=== PATIENT | female | born 1945 | race Caucasian/White ===

== ENCOUNTER 2019-07-27 23:12 | Inpatient (IN) | payer MEDICARE ==
--- NOTE | 2019-07-27 23:17 | ED ---
General Adult HPI - General Stated complaint: fall Time Seen by Provider: 07/27/19 23:15 - History of Present Illness Initial comments: Heather is a 73-year-old female presents the ER today via EMS for evaluation after a fall at home. Patient reports that she had a fall on , she was weak and unable to get up off the floor. Patient reports she spent night and TUESDAY on the floor. Tuesday she was able to reach a phone call 911, EMS arrived and the patient somewhat altered, very care glucose is 44 she was given apple juice with sugar and oral dextrose. Patient then became awake alert and oriented. Patient reports she was just feeling weak, she rolled out of bed and when she attempted to get up she can tell the floor she didn't hit her head she didn't lose consciousness. Patient states that she was too weak to get back up and her family is currently out of town spelled he came by to check on her. Patient reports she feels like she is doing pretty good for some beers with the day on the floor, she denies any specific pain. - Related Data Home Medications Medication Instructions Recorded Confirmed Aspirin 81 mg PO DAILY 03/06/14 03/06/14 Enalapril/Hydrochlorothiazide 1 each PO DAILY 03/06/14 03/06/14 [Enalapril-Hctz 10-25 mg Tablet] Hydrocodone/Acetaminophen 1 each PO Q6HR PRN 03/06/14 03/06/14 [Hydrocodon-Acetaminophen 5-325] Insulin NPH/Reg Insulin 70/30 100 unit SQ DAILY 03/06/14 03/06/14 [humuLIN 70/30 VIAL] Lansoprazole [Prevacid] 30 mg PO DAILY 03/06/14 03/06/14 Lovastatin [Mevacor] 40 mg PO HS 03/06/14 03/06/14 Meloxicam [Mobic] 7.5 mg PO DAILY 03/06/14 03/06/14 Tolterodine Tartrate [Detrol LA] 4 mg PO DAILY 03/06/14 03/06/14 metFORMIN HCL 500 mg PO DAILY 03/06/14 03/06/14 Previous Rx's Medication Instructions Recorded Meclizine [Antivert] 25 mg PO TID #30 tab 03/07/14 Allergies Allergy/AdvReac Type Severity Reaction Status Date / Time No Known Allergies Allergy Verified 07/27/19 23:29 Review of Systems ROS Statement: Those systems with pertinent positive or pertinent negative responses have been documented in the HPI. ROS Other: All systems not noted in ROS Statement are negative. Past Medical History Past Medical History: Diabetes Mellitus History of Any Multi-Drug Resistant Organisms: None Reported Past Surgical History: Hysterectomy, Orthopedic Surgery Additional Past Surgical History / Comment(s): cataract Past Psychological History: Depression Smoking Status: Former smoker Past Alcohol Use History: None Reported Past Drug Use History: None Reported General Exam - General Exam Comments Initial Comments: Physical Exam GENERAL: Morbidly obese female in no acute distress HENT: Normocephalic, Atraumatic. EYES: PERRL, EOMI PULMONARY: Unlabored respirations. No audible rales rhonchi or wheezing was noted. CARDIOVASCULAR: There is a regular rate and rhythm without any murmurs gallops or rubs. ABDOMEN: Soft and nontender with normal bowel sounds. SKIN: There are pressure ulcers on the bilateral calves, abrasions to bilateral lateral malleoli, abrasions over the ventral surface of the right toes There is skin breakdown in the intertriginous folds in the left groin : Normal external genitalia, mild skin breakdown secondary to urinary incontinence NEUROLOGIC: Patient is alert and oriented x3. Moving all extremities spontaneously MUSCULOSKELETAL: Normal extremities with adequate strength and full range of motion. No lower extremity swelling or edema. No calf tenderness. PSYCHIATRIC: Normal psychiatric evaluation. Course Vital Signs 07/27/19 07/27/19 07/27/19 23:22 23:32 23:33 Temperature 99.3 F Pulse Rate 101 H Respiratory 15 17 Rate Blood Pressure 151/66 O2 Sat by Pulse 94 L 97 Oximetry 07/28/19 00:27 Temperature Pulse Rate 93 Respiratory 20 Rate Blood Pressure 141/77 O2 Sat by Pulse 98 Oximetry EKG Findings - EKG Comments: EKG Findings:: EKG was obtained due to complaint of fall and generalized weakness, EKG was obtained at 2337, rate is 102 rhythm is sinus tachycardia, AK is prolonged at 224, QRS is 64 QTc is [address] elevations or depressions no evidence of acute ischemia or infarction. Medical Decision Making - Medical Decision Making The patient was seen and evaluated, history is obtained from the patient and EMS This pleasant 73-year-old female who has been on the floor for over 24 hours, she is no obvious visible injuries aside from superficial skin abrasions. Does appear to have some pressure ulcers developing on her calves. There is concerned she could've developed rhabdo the duration of being on the floor. Labs were obtained and are consistent with rhabdo with acute kidney injury and hypomagnesemia Magnesium was repleted, IV fluids are infusing Patient care was discussed with her primary care physician Dr. Pichardo who agrees with plan for admission for IV fluid resuscitation. - Lab Data Result diagrams: 07/27/19 23:25 07/27/19 23:35 Lab Results 07/27/19 07/27/19 07/27/19 Range/Units 23:22 23:25 23:25 WBC 13.0 H (3.8-10.6) k/uL RBC 4.07 (3.80-5.40) m/uL Hgb 13.1 (11.4-16.0) gm/dL Hct 39.1 (34.0-46.0) % MCV 96.0 (80.0-100.0) fL MCH 32.1 (25.0-35.0) pg MCHC 33.5 (31.0-37.0) g/dL RDW 12.7 (11.5-15.5) % Plt Count 171 (150-450) k/uL Neutrophils % 81 % Lymphocytes % 11 % Monocytes % 6 % Eosinophils % 1 % Basophils % 0 % Neutrophils # 10.6 H (1.3-7.7) k/uL Lymphocytes # 1.4 (1.0-4.8) k/uL Monocytes # 0.8 (0-1.0) k/uL Eosinophils # 0.1 (0-0.7) k/uL Basophils # 0.1 (0-0.2) k/uL PT (9.0-12.0) sec INR (<1.2) APTT (22.0-30.0) sec Sodium (137-145) mmol/L Potassium (3.5-5.1) mmol/L Chloride (98-107) mmol/L Carbon Dioxide (22-30) mmol/L Anion Gap mmol/L BUN (7-17) mg/dL Creatinine (0.52-1.04) mg/dL Est GFR (CKD-EPI)AfAm (>60 ml/min/1.73 sqM) Est GFR (CKD-EPI)NonAf (>60 ml/min/1.73 sqM) Glucose (74-99) mg/dL POC Glucose (mg/dL) 80 (75-99) mg/dL POC Glu Switching Operator ID Mary Francois Plasma Lactic Acid [place] 2.6 H* (0.7-2.0) mmol/L Calcium (8.4-10.2) mg/dL Magnesium (1.6-2.3) mg/dL Total Bilirubin (0.2-1.3) mg/dL AST (14-36) U/L ALT (4-34) U/L Alkaline Phosphatase (38-126) U/L Creatine Kinase (30-135) U/L Total Protein (6.3-8.2) g/dL Albumin (3.5-5.0) g/dL Urine Color Urine Appearance (Clear) Urine pH (5.0-8.0) Ur Specific [place] (1.001-1.035) Urine Protein (Negative) Urine Glucose (UA) (Negative) Urine Ketones (Negative) Urine Blood (Negative) Urine Nitrite (Negative) Urine Bilirubin (Negative) Urine Urobilinogen (<2.0) mg/dL Ur Leukocyte Esterase (Negative) Urine RBC (0-5) /hpf Urine WBC (0-5) /hpf Ur Squamous Epith Cells (0-4) /hpf Hyaline Casts (0-2) /lpf Urine Mucus (None) /hpf 07/27/19 07/27/19 07/27/19 Range/Units 23:25 23:35 23:45 WBC (3.8-10.6) k/uL RBC (3.80-5.40) m/uL Hgb (11.4-16.0) gm/dL Hct (34.0-46.0) % MCV (80.0-100.0) fL MCH (25.0-35.0) pg MCHC (31.0-37.0) g/dL RDW (11.5-15.5) % Plt Count (150-450) k/uL Neutrophils % % Lymphocytes % % Monocytes % % Eosinophils % % Basophils % % Neutrophils # (1.3-7.7) k/uL Lymphocytes # (1.0-4.8) k/uL Monocytes # (0-1.0) k/uL Eosinophils # (0-0.7) k/uL Basophils # (0-0.2) k/uL PT 11.1 (9.0-12.0) sec INR 1.1 (<1.2) APTT 21.6 L (22.0-30.0) sec Sodium 137 (137-145) mmol/L Potassium 4.1 (3.5-5.1) mmol/L Chloride 102 (98-107) mmol/L Carbon Dioxide 26 (22-30) mmol/L Anion Gap 9 mmol/L BUN 47 H (7-17) mg/dL Creatinine 1.43 H (0.52-1.04) mg/dL Est GFR (CKD-EPI)AfAm 42 (>60 ml/min/1.73 sqM) Est GFR (CKD-EPI)NonAf 36 (>60 ml/min/1.73 sqM) Glucose 81 (74-99) mg/dL POC Glucose (mg/dL) (75-99) mg/dL POC Glu Switching Operator ID Plasma Lactic Acid [place] (0.7-2.0) mmol/L Calcium 9.3 (8.4-10.2) mg/dL Magnesium 1.5 L (1.6-2.3) mg/dL Total Bilirubin 1.3 (0.2-1.3) mg/dL AST 171 H (14-36) U/L ALT 45 H (4-34) U/L Alkaline Phosphatase 49 (38-126) U/L Creatine Kinase 3010 H* (30-135) U/L Total Protein 6.6 (6.3-8.2) g/dL Albumin 3.8 (3.5-5.0) g/dL Urine Color Yellow Urine Appearance Clear (Clear) Urine pH 5.5 (5.0-8.0) Ur Specific [place] 1.025 (1.001-1.035) Urine Protein 1+ H (Negative) Urine Glucose (UA) Negative (Negative) Urine Ketones 1+ H (Negative) Urine Blood Negative (Negative) Urine Nitrite Negative (Negative) Urine Bilirubin Negative (Negative) Urine Urobilinogen 4.0 (<2.0) mg/dL Ur Leukocyte Esterase Negative (Negative) Urine RBC <1 (0-5) /hpf Urine WBC <1 (0-5) /hpf Ur Squamous Epith Cells 2 (0-4) /hpf Hyaline Casts 10 H (0-2) /lpf Urine Mucus Rare H (None) /hpf Disposition Clinical Impression: Rhabdomyolysis, Fall at home, Decubitus ulcer of ankle, Morbid obesity, Debility, BELLA (acute kidney injury) Disposition: ADMITTED IP TO THIS HOSP Condition: Serious Is patient prescribed a controlled substance at d/c from ED?: No
[2019-07-27 23:25] LABS: Glucose,Whole Blood 80 mg/dL (75-99)
[2019-07-27] MEDS: SODIUM CHLORIDE 0.9% 500 ML 500 ML IV SCH (23:53)
[2019-07-28 00:02] LABS: Basophils # (A) 0.1 k/uL (0-0.2); Basophils % (A) 0 %; Eosinophils # (A) 0.1 k/uL (0-0.7); Eosinophils % (A) 1 %; HCT 39.1 % (34.0-46.0); HGB 13.1 gm/dL (11.4-16.0); Lymphocytes # (A) 1.4 k/uL (1.0-4.8); Lymphocytes % (A) 11 %; MCH 32.1 pg (25.0-35.0); MCHC 33.5 g/dL (31.0-37.0); Mean Platelet Volume 9.6; Monocytes # (A) 0.8 k/uL (0-1.0); Monocytes % (A) 6 %; Neutrophils # (A) 10.6 k/uL (1.3-7.7); Neutrophils % (A) 81 %; Platelet Count 171 k/uL (150-450); RBC 4.07 m/uL (3.80-5.40); RDW 12.7 % (11.5-15.5)
[2019-07-28 00:13] LABS: Albumin 3.8 g/dL (3.5-5.0); Calcium 9.3 mg/dL (8.4-10.2); Magnesium 1.5 mg/dL (1.6-2.3); Potassium 4.1 mmol/L (3.5-5.1); Total Bilirubin 1.3 mg/dL (0.2-1.3); Total Protein 6.6 g/dL (6.3-8.2)
[2019-07-28 00:17] LABS: INR 1.1 (<1.2); Prothrombin Time 11.1 sec (9.0-12.0)
[2019-07-28 00:18] LABS: Partial Thromboplastin Time 21.6 sec (22.0-30.0)
[2019-07-28] MEDS ORDERED: MAGNESIUM SULFATE-D5W PMX 1 GM in DEXTROSE/WATER 1 100ML.BAG IVPB ONE (00:23)
[2019-07-28] MEDS: SODIUM CHLORIDE 0.9% 500 ML 500 ML IV SCH (00:25)
[2019-07-28] MEDS ORDERED: NALOXONE 0.4 MG/ML 1 ML VIAL IV PRN (00:26)
[2019-07-28] MEDS: SODIUM CHLORIDE 0.9% 1,000 ML IV SCH ×4 (00:32→21:15)
[2019-07-28 01:12] LABS: Appearance,Urine Clear (Clear); Bilirubin,Urine Negative (Negative); Blood,Urine Negative (Negative); Color,Urine Yellow; Glucose,Urine (UA) Negative (Negative); Hyaline Casts,Urine 10 /lpf (0-2); Ketones,Urine 1+ (Negative); Leukocyte Esterase,Urine Negative (Negative); Mucus,Urine Rare /hpf; Nitrite,Urine Negative (Negative); PH, Urine 5.5 (5.0-8.0); Protein,Urine 1+ (Negative); RBC,Urine <1 /hpf (0-5); Specific Gravity,Urine 1.025 (1.001-1.035); Squamous Epithelial Cell,Urine 2 /hpf (0-4); WBC,Urine <1 /hpf (0-5)
[2019-07-28] MEDS: HYDROcodone/APAP 5-325MG 1 EACH TAB PO PRN ×2 (01:22→17:56)
[2019-07-28 07:03] LABS: Glucose,Whole Blood 102 mg/dL (75-99)
[2019-07-28] MEDS: INSULIN ASPART (NovoLOG) 100 UNIT/ML VIAL SQ SCH ×4 (07:39→20:09)
[2019-07-28] MEDS: LISINOPRIL 20 MG TAB PO SCH (08:59)
[2019-07-28] MEDS: HYDROCHLOROTHIAZIDE 25 MG TAB PO SCH (08:59)
[2019-07-28] MEDS: PANTOPRAZOLE 40 MG TABLET PO SCH (08:59)
[2019-07-28] MEDS: ASPIRIN 81 MG PO SCH (08:59)
[2019-07-28 11:29] LABS: Glucose,Whole Blood 244 mg/dL (75-99)
[2019-07-28] MEDS: CITALOPRAM HYDROBROMIDE 20 MG TAB PO SCH (13:40)
[2019-07-28 16:45] LABS: Glucose,Whole Blood 256 mg/dL (75-99)
[2019-07-28 20:04] LABS: Glucose,Whole Blood 211 mg/dL (75-99)
--- NOTE | 2019-07-28 21:58 | HP ---
HISTORY AND PHYSICAL CHIEF COMPLAINT: 73-year-old white female, who fell out of her bed, laid on the bed at home for 2 days, was admitted for rhabdomyolysis. States she has been having a little bit of tremor in her left hand and 1 of her fingers wants that reviewed. She apparently got to the phone and called 911. She did not lose consciousness. She just woke up on the floor and was on the floor for 2 days. HOME MEDICATIONS: Include aspirin 81 mg daily, [place] 5/35 q.6 p.r.n., enalapril hydrochlorothiazide 10/25 daily, 70/30 insulin 100 units daily, Prevacid 30 mg daily, Mevacor 40 daily, Mobic 7.5 daily, Detrol LA 4 daily, metformin 500 daily. ALLERGIES: Negative. REVIEW OF SYSTEMS: Fourteen-point review of systems negative except for mentioned in the HPI, except for some mild abrasions in the lower legs and myalgias. PAST MEDICAL HISTORY: Hypertension, diabetes mellitus, some depression, former smoker. SURGERIES: Hysterectomy, orthopedic surgery. PHYSICAL EXAM: Vital signs stable, afebrile. Endocrine BMI is over 40. PSYCH: Fair mood and affect. HEENT: Pupils equal, round, reactive. HEAD: Normocephalic, atraumatic. CARDIOVASCULAR: S1, S2. ABDOMEN: Soft, normal bowel sounds. SKIN is some pressure ulcers on bilateral calves. Some abrasions and bruising to the anterior tibials, knees. : No suprapubic tenderness. NEUROLOGIC: Cranial nerves are intact. VITAL SIGNS: Temp 99.3, pulse 90-100, respiratory 15-20, blood pressure 150s over 60s, 94 to 97% on room air. EKG sinus rhythm, sinus tachycardia. ASSESSMENT: 1. Dehydration. 2. Rhabdomyolysis. 3. Frequent falls. 4. Bruising and abrasions to extremities. 5. CPKs over 3000. Continue with IV fluids. Monitor for kidney injury. Continue home medicines except hold medicines that can affect rhabdomyolysis including statins. Follow up next 24 to 48 hours. MMODL / IJN: [id number] /
[2019-07-29] MEDS: SODIUM CHLORIDE 0.9% 1,000 ML IV SCH ×3 (01:33→17:51)
[2019-07-29] MEDS: LEVOTHYROXINE 50 MCG TAB PO SCH (06:07)
[2019-07-29 07:15] LABS: Glucose,Whole Blood 177 mg/dL (75-99)
[2019-07-29 08:06] LABS: Basophils # (A) 0.1 k/uL (0-0.2); Basophils % (A) 1 %; Eosinophils # (A) 0.2 k/uL (0-0.7); Eosinophils % (A) 3 %; HCT 35.3 % (34.0-46.0); HGB 11.8 gm/dL (11.4-16.0); Lymphocytes # (A) 1.5 k/uL (1.0-4.8); Lymphocytes % (A) 27 %; MCH 32.7 pg (25.0-35.0); MCHC 33.3 g/dL (31.0-37.0); Mean Platelet Volume 9.3; Monocytes # (A) 0.3 k/uL (0-1.0); Monocytes % (A) 6 %; Neutrophils # (A) 3.6 k/uL (1.3-7.7); Neutrophils % (A) 62 %; Platelet Count 112 k/uL (150-450); RBC 3.61 m/uL (3.80-5.40); RDW 12.7 % (11.5-15.5); WBC 5.8 k/uL (3.8-10.6)
[2019-07-29 08:23] LABS: Albumin 3.1 g/dL (3.5-5.0); Calcium 8.7 mg/dL (8.4-10.2); Potassium 4.1 mmol/L (3.5-5.1); Total Protein 5.8 g/dL (6.3-8.2)
[2019-07-29] MEDS ORDERED: NON FORMULARY DRUG (Cranberry Fruit Extract [Cranberry] 500 MG) PO SCH (09:00)
[2019-07-29] MEDS: CITALOPRAM HYDROBROMIDE 20 MG TAB PO SCH (09:39)
[2019-07-29] MEDS: HYDROCHLOROTHIAZIDE 25 MG TAB PO SCH (09:39)
[2019-07-29] MEDS: CYANOCOBALAMIN 500 MCG TAB PO SCH (09:39)
[2019-07-29] MEDS: INSULIN ASPART (NovoLOG) 100 UNIT/ML VIAL SQ SCH ×4 (09:39→20:41)
[2019-07-29] MEDS: LISINOPRIL 20 MG TAB PO SCH (09:39)
[2019-07-29] MEDS: PANTOPRAZOLE 40 MG TABLET PO SCH (09:39)
[2019-07-29] MEDS: ASPIRIN 81 MG PO SCH (09:39)
[2019-07-29 11:39] LABS: Glucose,Whole Blood 206 mg/dL (75-99)
[2019-07-29 17:09] LABS: Glucose,Whole Blood 278 mg/dL (75-99)
--- NOTE | 2019-07-29 19:30 | PN ---
PROGRESS NOTE SUBJECTIVE: 73-year-old white female not having chest pain or shortness of breath, chronic myalgias in the legs bilaterally with some abrasions. We will continue PT/OT and ambulation. Possible rehab placement versus discharge home tomorrow depending on how patient ambulates. CPK is down to 707 down from 3500. Continue current treatment. PT/OT consult. Possible discharge home in next day or 2 or to rehab center. MMODL / IJN: [id number] /
[2019-07-29 19:50] LABS: Glucose,Whole Blood 311 mg/dL (75-99)
[2019-07-30] MEDS: LEVOTHYROXINE 50 MCG TAB PO SCH (05:48)
[2019-07-30 07:15] LABS: Glucose,Whole Blood 192 mg/dL (75-99)
[2019-07-30] MEDS: CYANOCOBALAMIN 500 MCG TAB PO SCH (07:19)
[2019-07-30] MEDS: ASPIRIN 81 MG PO SCH (07:19)
[2019-07-30] MEDS: CITALOPRAM HYDROBROMIDE 20 MG TAB PO SCH (07:19)
[2019-07-30] MEDS: HYDROCHLOROTHIAZIDE 25 MG TAB PO SCH (07:19)
[2019-07-30] MEDS: INSULIN ASPART (NovoLOG) 100 UNIT/ML VIAL SQ SCH ×4 (07:20→20:52)
[2019-07-30] MEDS: LISINOPRIL 20 MG TAB PO SCH (07:20)
[2019-07-30] MEDS: SODIUM CHLORIDE 0.9% 1,000 ML IV SCH ×4 (07:20→19:47)
[2019-07-30] MEDS: PANTOPRAZOLE 40 MG TABLET PO SCH (07:21)
[2019-07-30 08:15] LABS: Basophils % (A) 0 %; Eosinophils # (A) 0.2 k/uL (0-0.7); Eosinophils % (A) 5 %; HCT 39.8 % (34.0-46.0); HGB 13.1 gm/dL (11.4-16.0); Lymphocytes # (A) 1.3 k/uL (1.0-4.8); Lymphocytes % (A) 27 %; MCH 32.2 pg (25.0-35.0); MCHC 32.9 g/dL (31.0-37.0); Mean Platelet Volume 9.6; Monocytes # (A) 0.3 k/uL (0-1.0); Monocytes % (A) 6 %; Neutrophils # (A) 2.8 k/uL (1.3-7.7); Neutrophils % (A) 59 %; Platelet Count 122 k/uL (150-450); RBC 4.06 m/uL (3.80-5.40); RDW 12.6 % (11.5-15.5); WBC 4.7 k/uL (3.8-10.6)
[2019-07-30 08:17] LABS: Albumin 3.4 g/dL (3.5-5.0); Calcium 8.6 mg/dL (8.4-10.2); Potassium 4.4 mmol/L (3.5-5.1); Total Bilirubin 0.8 mg/dL (0.2-1.3); Total Protein 6.1 g/dL (6.3-8.2)
[2019-07-30 11:06] LABS: Glucose,Whole Blood 216 mg/dL (75-99)
--- NOTE | 2019-07-30 12:06 | P.DS ---
Providers Date of admission: 07/28/19 00:30 Expected date of discharge: 07/30/19 Attending physician: Wagner Pichardo [facility] Course: Final Diagnoses Dehydration Rhabdomyolysis Recent falls 2 Hospital course: This is a 73-year-old female who sustained 2 falls within 2 days, admitted with rhabdomyolysis and multiple other medical issues. Maintained on IV fluid hydration. Statin and metformin remain on hold. Significant clinical improvement. Patient is pending discharge to subacute rehab today in a stable condition with fair prognosis. EXAM: GEN: Alert and oriented 3, no acute distress CV: Regular S1 and S2 LUNGS: Clear to auscultation, bilateral bases diminished ABD: Soft, nondistended, nontender, positive bowel sounds NEURO: Cranial nerves II through XII grossly intact SKIN: Multiple abrasions/bruising on extremities. The impression and plan of care has been dictated as directed. : I performed a history and examination of this patient, discussed the same with the dictator. I agree with the dictator's note ,documented as a scribe. Any additional findings or plans will be noted. Patient Condition at Discharge: Stable Plan - Discharge Summary New Discharge Prescriptions: New INSULIN LISPRO (HumaLOG) [humaLOG] 0 unit SQ ACHS #1 vial Continue Aspirin 81 mg PO DAILY Meloxicam [Mobic] 7.5 mg PO BID Lansoprazole [Prevacid] 30 mg PO DAILY Tolterodine Tartrate [Detrol LA] 4 mg PO DAILY Insulin NPH/Reg Insulin 70/30 [humuLIN 70/30 VIAL] 110 unit SQ DAILY Enalapril/Hydrochlorothiazide [Vaseretic 10-25 mg] 1 tab PO DAILY Levothyroxine Sodium [Synthroid] 50 mcg PO DAILY Cyanocobalamin [Vitamin B-12] 500 mcg PO DAILY Cranberry Fruit Extract [Cranberry] 500 mg PO DAILY Citalopram Hydrobromide [CeleXA] 40 mg PO DAILY Discontinued metFORMIN HCL 500 mg PO DAILY Lovastatin [Mevacor] 40 mg PO DAILY Discharge Medication List Aspirin 81 mg PO DAILY 03/06/14 [History] Enalapril/Hydrochlorothiazide [Vaseretic 10-25 mg] 1 tab PO DAILY 03/06/14 [History] Insulin NPH/Reg Insulin 70/30 [humuLIN 70/30 VIAL] 110 unit SQ DAILY 03/06/14 [History] Lansoprazole [Prevacid] 30 mg PO DAILY 03/06/14 [History] Meloxicam [Mobic] 7.5 mg PO BID 03/06/14 [History] Tolterodine Tartrate [Detrol LA] 4 mg PO DAILY 03/06/14 [History] Citalopram Hydrobromide [CeleXA] 40 mg PO DAILY 07/28/19 [History] Cranberry Fruit Extract [Cranberry] 500 mg PO DAILY 07/28/19 [History] Cyanocobalamin [Vitamin B-12] 500 mcg PO DAILY 07/28/19 [History] Levothyroxine Sodium [Synthroid] 50 mcg PO DAILY 07/28/19 [History] INSULIN LISPRO (HumaLOG) [humaLOG] 0 unit SQ ACHS #1 vial 07/30/19 [Rx] Follow up Appointment(s)/Referral(s): Wagner Pichardo MD [Primary Care Provider] - 1-2 days Patient Instructions/Handouts: Fall Prevention for Older Adults (DC) Activity/Diet/Wound Care/Special Instructions: ECF Metformin, statin currently on hold CBC, BMP in 3 days Diet: Consistent carb Activity: As tolerated Discharge Disposition: TRANSFER TO SNF/ECF
[2019-07-30 12:57] LABS: Hemoglobin A1C 5.6 % (4.0-6.0)
[2019-07-30 17:02] LABS: Glucose,Whole Blood 260 mg/dL (75-99)
[2019-07-30 20:50] LABS: Glucose,Whole Blood 292 mg/dL (75-99)
[2019-07-31] MEDS: SODIUM CHLORIDE 0.9% 1,000 ML IV SCH ×3 (03:06→17:40)
[2019-07-31] MEDS: LEVOTHYROXINE 50 MCG TAB PO SCH (05:48)
[2019-07-31 07:12] LABS: Glucose,Whole Blood 161 mg/dL (75-99)
[2019-07-31] MEDS: CITALOPRAM HYDROBROMIDE 20 MG TAB PO SCH (08:29)
[2019-07-31] MEDS: PANTOPRAZOLE 40 MG TABLET PO SCH (08:30)
[2019-07-31] MEDS: LISINOPRIL 20 MG TAB PO SCH (08:30)
[2019-07-31] MEDS: ASPIRIN 81 MG PO SCH (08:30)
[2019-07-31] MEDS: CYANOCOBALAMIN 500 MCG TAB PO SCH (08:31)
[2019-07-31] MEDS: HYDROCHLOROTHIAZIDE 25 MG TAB PO SCH (08:31)
[2019-07-31] MEDS: INSULIN ASPART (NovoLOG) 100 UNIT/ML VIAL SQ SCH ×3 (08:31→17:39)
[2019-07-31 11:25] LABS: Glucose,Whole Blood 376 mg/dL (75-99)
[2019-07-31 12:32] VITALS: BP 113/61; PULSE 98; RESP 18; TEMP 97.1
[2019-07-31 16:53] LABS: Glucose,Whole Blood 314 mg/dL (75-99)
--- NOTE | 2019-08-01 11:42 | CDI ---
Documentation Clarification Form Date: 08/01/19 From: Radha Menendez Phone: If you have a question about this query, please contact Gladis Leavitt, Casino Cashier Manager at [phone] between 8am and 5pm. Admit Date: 07/28/19 Discharge Date: 07/31/19 Patient Name: Heather Taylor Visit Number: [id number] ATTENTION: The Clinical Documentation Specialists (CDI) and [facility] Coding Staff appreciate your assistance in clarifying documentation. Please respond to the clarification below the line at the bottom and electronically sign. The CDI & [facility] Coding staff will review the response and follow-up if needed. Please note: Queries are made part of the Legal Health Record. If you have any questions, please contact the author of this message via ITS. Dear Dr. Wagner Pichardo, Please render your impression if rhabdomyolysis is traumatic or non-traumatic. History/Risk Factors: DM, morbid obesity w BMI 43.0, HTN, pressure ulcer of calves Clinical Indicators: Patient fell from bed and laid on the floor for two days. Dehydrated, fx nose Treatment: IV fluids In your professional opinion, can you please clarify the etiology of the condition? Traumatic rhabdomyolysis due to fall Traumatic rhabdomyolysis due to prolonged immobility Non traumatic rhabdomyolysis due to medication (please specify) Non traumatic rhabdomyolysis due to infection (please specify) Other, please specify Unable to determine MTDD
--- NOTE | 2019-08-03 12:57 | CDI ---
Documentation Clarification Form Date: 08/01/19 From: Radha Menendez Phone: If you have a question about this query, please contact Gladis Leavitt, Kennel Aide at [phone] between 8am and 5pm. Admit Date: 07/28/19 Discharge Date: 07/31/19 Patient Name: Heather Taylor Visit Number: [id number] ATTENTION: The Clinical Documentation Specialists (CDI) and [facility] Coding Staff appreciate your assistance in clarifying documentation. Please respond to the clarification below the line at the bottom and electronically sign. The CDI & [facility] Coding staff will review the response and follow-up if needed. Please note: Queries are made part of the Legal Health Record. If you have any questions, please contact the author of this message via ITS. Dear Dr. Wagner Pichardo, Please render your impression if rhabdomyolysis is traumatic or non-traumatic. History/Risk Factors: DM, morbid obesity w BMI 43.0, HTN, pressure ulcer of calves Clinical Indicators: Patient fell from bed and laid on the floor for two days. Dehydrated, fx nose Treatment: IV fluids In your professional opinion, can you please clarify the etiology of the condition? Traumatic rhabdomyolysis due to fall Traumatic rhabdomyolysis due to prolonged immobility Non traumatic rhabdomyolysis due to medication (please specify) Non traumatic rhabdomyolysis due to infection (please specify) Other, please specify Unable to determine MTDD
--- NOTE | 2019-08-09 11:52 | CDI ---
Documentation Clarification Form Date: 08/01/19 From: Radha Menendez Phone: If you have a question about this query, please contact Gladis Leavitt, [employer] at [phone] between 8am and 5pm. Admit Date: 07/28/19 Discharge Date: 07/31/19 Patient Name: Heather Taylor Visit Number: [id number] ATTENTION: The Clinical Documentation Specialists (CDI) and [facility] Coding Staff appreciate your assistance in clarifying documentation. Please respond to the clarification below the line at the bottom and electronically sign. The CDI & [facility] Coding staff will review the response and follow-up if needed. Please note: Queries are made part of the Legal Health Record. If you have any questions, please contact the author of this message via ITS. Dear Dr. Wagner Pichardo, Please render your impression if rhabdomyolysis is traumatic or non-traumatic. History/Risk Factors: DM, morbid obesity w BMI 43.0, HTN, pressure ulcer of calves Clinical Indicators: Patient fell from bed and laid on the floor for two days. Dehydrated, fx nose Treatment: IV fluids In your professional opinion, can you please clarify the etiology of the condition? Traumatic rhabdomyolysis due to fall Traumatic rhabdomyolysis due to prolonged immobility Non traumatic rhabdomyolysis due to medication (please specify) Non traumatic rhabdomyolysis due to infection (please specify) Other, please specify Unable to determine MTDD
--- NOTE | 2019-08-13 08:46 | DS ---
DISCHARGE SUMMARY Please add to discharge summary: Traumatic rhabdomyolysis due to prolonged immobility. MMEVELYN / IJN: [id number] /
== END 2019-07-31 18:40 | disposition home health service (06) | DRG 565 ==
LOC: EC 23:12 → 5NMEDONC 07-28 00:30
PROVIDERS: ADMIT Family Medicine; ATTEND Family Medicine
DX: T79.6XXA Traumatic ischemia of muscle, initial encounter (principal); Z68.41 Body mass index [BMI] 40.0-44.9, adult; N17.9 Acute kidney failure, unspecified; L89.899 Pressure ulcer of other site, unspecified stage; E66.01 Morbid (severe) obesity due to excess calories; E86.0 Dehydration; E11.9 Type 2 diabetes mellitus without complications; I10 Essential (primary) hypertension; E83.42 Hypomagnesemia; R25.1 Tremor, unspecified; F32.9 Major depressive disorder, single episode, unspecified; L98.491 Non-pressure chronic ulcer of skin of other sites limited to breakdown of skin; S80.812A Abrasion, left lower leg, initial encounter; S80.811A Abrasion, right lower leg, initial encounter; R32 Unspecified urinary incontinence; R29.6 Repeated falls; Z79.82 Long term (current) use of aspirin; Z79.4 Long term (current) use of insulin; Z79.1 Long term (current) use of non-steroidal anti-inflammatories (NSAID); Z79.890 Hormone replacement therapy; Z79.899 Other long term (current) drug therapy; Z90.710 Acquired absence of both cervix and uterus; Z87.891 Personal history of nicotine dependence; Z98.49 Cataract extraction status, unspecified eye; W06.XXXA Fall from bed, initial encounter; Y92.003 Bedroom of unspecified non-institutional (private) residence as the place of occurrence of the external cause
CPT/HCPCS: 36415; 80053; 81001; 82550; 83036; 83605; 83735; 84484; 85025; 85610; 85730; 87040; 93005; 96365; 99285

== ENCOUNTER 2019-08-07 14:29 | Inpatient (IN) | payer MEDICARE ==
[2019-08-07 17:31] LABS: Glucose,Whole Blood 259 mg/dL (75-99)
[2019-08-07] MEDS ORDERED: ACETAMINOPHEN TAB 325 MG TAB PO PRN (18:29)
[2019-08-07] MEDS: SODIUM CHLORIDE 0.9% 1,000 ML IV SCH (20:32)
[2019-08-07] MEDS ORDERED: MELOXICAM 7.5 MG TAB PO SCH (21:00)
[2019-08-08] MEDS: LEVOTHYROXINE 50 MCG TAB PO SCH (06:04)
--- NOTE | 2019-08-08 07:11 | P.HPIM ---
History of Present Illness This is a pleasant 73 years old female with past medical history of diabetes mellitus, hyperlipidemia, hypertension, osteoarthritis, sleep apnea on CPAP/BiPAP. The patient is transferred from [facility] last was showing normal sodium and potassium 07/02/1933 and 4.3 respectively, creatinine normal at 1.0, liver enzymes elevated AST to 78, ALT 207, bilirubin is elevated at 4.9 and direct bilirubin is 3.8. The biopsies mildly elevated at 12.5, hemoglobin 13.3. Platelet 1 5040, INR 1.2, test is negative. Magnesium 1.5, looks like earlier in the admission [facility] liver enzymes were within normal reference range at AST 32 and ALT 29 with total bilirubin is 0.2. CPK is normal at 78. Troponin is negative less than 0.012. Urinalysis is not suspicious of infection. Hemoglobin A1c is 5.5%. Lactic acid 1.6. CT of the abdomen and pelvis with oral and IV contrast: Normal appearing liver and spleen, gallstones, no hydronephrosis. CT of the head: No acute intracranial process and chronic appearing periventricular white matter ischemic changes by radiologist. Ultrasound of the liver: Negative for leg 14.7 cm, with heterogeneous appearance no focal lesion. Gallstones. And sludge in the region of the gallbladder neck CBD 0.4 cm no findings of acute cholecystitis at that time and by radiologist for heterogenicity could be due to nonspecific hepatocellular disease. Doppler of the right lower extremity is negative for DVT. Blood pressure 118/48, she is saturating 95% and breathing rate 20 temperature 36.7 at [facility] By review records when she presented to [facility] her sugar was on the low side in the 40s which is corrected with therapy. She was somewhat confused because she could not remember the day or once she was eating. And she was released from [facility] a few days earlier after she fell at home. However her GCS total score was 15. Patient was found unresponsive by her neighbor so she was sent to the hospital. Later on her hemoglobin A1c was 5.5% and she was taken 100 units of insulin 70/30 which was stopped, however 2 days ago her liver enzymes and bilirubin start trending up so patient was transferred to the Hospital to Be Evaluated by Miter Grinder Operator This morning patient is fully awake and oriented to time place and person. She knows why she is in a hospital. She states she was living by herself and she was recently discharged from hospital from , and usually she takes 100 units of insulin 70/30 has been gradually increased over 30 years. Currently patient denies specific complaint of chest pain or dyspnea. No abdominal pain. No RUQ tenderness or pain. No nausea vomiting. No change in urine or bowel habits. Review of Systems CONSTITUTIONAL: No fever, no malaise, no fatigue. HEENT: No recent visual problems or hearing problems. Denied any sore throat. CARDIOVASCULAR: No orthopnea, PND, no palpitations, no syncope. PULMONARY: No shortness of breath, no cough, no hemoptysis. GASTROINTESTINAL: No diarrhea, no nausea, no vomiting, no abdominal pain. Normoactive bowel sounds. NEUROLOGICAL: No headaches, no weakness, no numbness. HEMATOLOGICAL: Denies any bleeding or petechiae. GENITOURINARY: Denies any burning micturition, frequency, or urgency. MUSCULOSKELETAL/RHEUMATOLOGICAL: Denies any joint pain, swelling, or any muscle pain. ENDOCRINE: Denies any polyuria or polydipsia. Past Medical History Past Medical History: Diabetes Mellitus, Hyperlipidemia, Hypertension, Osteoarthritis (OA), Sleep Apnea/CPAP/BIPAP History of Any Multi-Drug Resistant Organisms: None Reported Past Surgical History: Hysterectomy, Orthopedic Surgery Additional Past Surgical History / Comment(s): bilateral cataract, total right knee Smoking Status: Former smoker - Past Family History Mother Family Medical History: No Reported History Medications and Allergies Home Medications Medication Instructions Recorded Confirmed Type Aspirin 81 mg PO DAILY 03/06/14 08/07/19 History Enalapril/Hydrochlorothiazide 1 tab PO DAILY 03/06/14 08/07/19 History [Vaseretic 10-25 mg] Insulin NPH/Reg Insulin 70/30 110 unit SQ DAILY 03/06/14 08/07/19 History [humuLIN 70/30 VIAL] Lansoprazole [Prevacid] 30 mg PO DAILY 03/06/14 08/07/19 History Meloxicam [Mobic] 7.5 mg PO BID 03/06/14 08/07/19 History Tolterodine Tartrate [Detrol LA] 4 mg PO DAILY 03/06/14 08/07/19 History Citalopram Hydrobromide [CeleXA] 40 mg PO DAILY 07/28/19 08/07/19 History Cranberry Fruit Extract [Cranberry] 500 mg PO DAILY 07/28/19 08/07/19 History Cyanocobalamin [Vitamin B-12] 500 mcg PO DAILY 07/28/19 08/07/19 History Levothyroxine Sodium [Synthroid] 50 mcg PO DAILY 07/28/19 08/07/19 History Allergies Allergy/AdvReac Type Severity Reaction Status Date / Time No Known Allergies Allergy Verified 08/07/19 18:22 Physical Exam Vitals: Vital Signs Temp Pulse Pulse Resp BP Pulse Ox 08/08/19 05:00 98.5 F 77 16 96/56 92 L 08/07/19 20:58 99.5 F 96 16 99/65 93 L 08/07/19 17:30 98.1 F 76 17 151/55 96 Intake and Output 08/07/19 08/07/19 08/08/19 14:59 22:59 06:59 Intake Total 150 600 Balance 150 600 Intake: Intake, IV Titration 150 600 Amount Sodium Chloride 0.9% 1, 150 600 000 ml @ 75 mls/hr IV . [id number] [facility] Rx#:[id number] Other: Voiding Method Toilet Toilet Diaper Diaper Incontinent Incontinent # Voids 1 Weight 90.718 kg GENERAL: The patient is alert and oriented x3, not in any acute distress. Well developed, well nourished. HEENT: Pupils are round and equally reacting to light. EOMI. No scleral icterus. No conjunctival pallor. Normocephalic, atraumatic. No pharyngeal erythema. No thyromegaly. CARDIOVASCULAR: S1 and S2 present. No murmurs, rubs, or gallops. PULMONARY: Chest is clear to auscultation, no wheezing or crackles. ABDOMEN: Soft, nontender, nondistended, normoactive bowel sounds. No palpable organomegaly. MUSCULOSKELETAL: No joint swelling or deformity. EXTREMITIES: No cyanosis, clubbing, or pedal edema. NEUROLOGICAL: Gross neurological examination did not reveal any focal deficits. SKIN: No rashes. No petechiae Results Labs: Abnormal Lab Results - Last 24 Hours (Table) 08/07/19 Range/Units 17:28 POC Glucose (mg/dL) 259 H (75-99) mg/dL Thrombosis Risk Factor Assmnt - Choose All That Apply Any of the Below Risk Factors Present?: Yes Each Factor Represents 1 point: Medical pt on bed rest Other Risk Factors: Yes Each Risk Factor Represents 2 Points: Age 61-74 years Thrombosis Risk Factor Assessment Total Risk Factor Score: 3 Thrombosis Risk Factor Assessment Level: Moderate Risk Assessment and Plan Assessment: Trending up liver enzymes and bilirubin, transaminitis with possible bile duct obstruction Altered mental status, mostly metabolic encephalopathy due to her medical problems, including hypoglycemia and transaminitis. Completely resolved Generalized weakness Mildly elevated white cell count Diabetes mellitus with hyperglycemia on presentation. Hemoglobin A1c is 5.5%. Insulin was stopped. Electrolyte abnormality on the presentation with hypokalemia and hypomagnesemia, currently improving Hypertension Hyperlipidemia Osteoarthritis Sleep apnea on CPAP/BiPAP Plan: This is a pleasant 73 years old female who presents with hypoglycemia and tendon of the liver isn't improving. Continue monitoring her liver test and consult GI team for possible ERCP versus MRCP. Continue with insulin sliding scale. Physical therapy and social worker aide evaluation. Labs and medication were reviewed.. Continue same treatment. Continue with symptomatic treatment. Resume home medication. Monitor lytes and vitals. DVT and GI prophylaxis. Further recommendations of the clinical course of the patient DVT prophylaxis: Subcutaneous heparin GI Prophylaxis: Pepcid PT/OT: Pending Prognosis is guarded
[2019-08-08 08:13] LABS: Basophils % (A) 0 %; Eosinophils # (A) 0.1 k/uL (0-0.7); Eosinophils % (A) 1 %; HCT 32.9 % (34.0-46.0); HGB 10.8 gm/dL (11.4-16.0); Lymphocytes # (A) 0.6 k/uL (1.0-4.8); Lymphocytes % (A) 10 %; MCH 32.5 pg (25.0-35.0); MCHC 32.8 g/dL (31.0-37.0); MCV 99.1 fL (80.0-100.0); Mean Platelet Volume 9.8; Monocytes # (A) 0.3 k/uL (0-1.0); Monocytes % (A) 5 %; Neutrophils # (A) 5.2 k/uL (1.3-7.7); Neutrophils % (A) 83 %; Platelet Count 101 k/uL (150-450); RBC 3.32 m/uL (3.80-5.40); RDW 13.2 % (11.5-15.5); WBC 6.3 k/uL (3.8-10.6)
[2019-08-08 08:15] LABS: Glucose,Whole Blood 210 mg/dL (75-99)
[2019-08-08 08:28] LABS: Appearance,Urine Cloudy (Clear); Bacteria,Urine Occasional /hpf; Bilirubin,Urine 2+ (Negative); Blood,Urine Negative (Negative); Color,Urine Dark Brown; Glucose,Urine (UA) Negative (Negative); Ketones,Urine Negative (Negative); Leukocyte Esterase,Urine Negative (Negative); Mucus,Urine Rare /hpf; Nitrite,Urine Negative (Negative); Protein,Urine 1+ (Negative); RBC,Urine 4 /hpf (0-5); Squamous Epithelial Cell,Urine 5 /hpf (0-4); WBC,Urine 9 /hpf (0-5)
[2019-08-08 08:30] LABS: Albumin 2.5 g/dL (3.5-5.0); Bilirubin, Conjugated 3.1 mg/dL (0.0-0.3); Bilirubin, Delta 1.4 mg/dL (0.0-0.2); Calcium 7.9 mg/dL (8.4-10.2); Magnesium 1.5 mg/dL (1.6-2.3); Potassium 3.8 mmol/L (3.5-5.1); Total Bilirubin 5.5 mg/dL (0.2-1.3); Total Protein 5.1 g/dL (6.3-8.2)
[2019-08-08] MEDS ORDERED: FAMOTIDINE 20 MG/2 ML VIAL IV SCH (09:00)
[2019-08-08] MEDS: HEPARIN SODIUM,PORCINE 5,000 UNIT/ML 1 ML VIAL SQ SCH ×2 (09:04→20:11)
[2019-08-08] MEDS: PANTOPRAZOLE 40 MG TABLET PO SCH (09:04)
[2019-08-08] MEDS: OXYBUTYNIN XL 5 MG TAB.ER.24 PO SCH (09:04)
[2019-08-08] MEDS: ASPIRIN 81 MG PO SCH (09:04)
[2019-08-08] MEDS: CYANOCOBALAMIN 500 MCG TAB PO SCH (09:05)
[2019-08-08] MEDS: CITALOPRAM HYDROBROMIDE 20 MG TAB PO SCH (09:05)
[2019-08-08] MEDS: NON FORMULARY DRUG (Cranberry Fruit Extract [Cranberry] 500 MG) PO SCH (09:05)
[2019-08-08] MEDS: INSULIN ASPART (NovoLOG) 100 UNIT/ML VIAL SQ SCH ×3 (11:15→20:11)
[2019-08-08 11:18] LABS: Glucose,Whole Blood 299 mg/dL (75-99)
[2019-08-08] MEDS ORDERED: LORazepam 2 MG/ML INJ IV STA (15:40)
[2019-08-08 16:01] LABS: Alpha Fetoprotein, Tumor Mkr <2.5 ng/mL (0.0-7.9)
[2019-08-08 16:32] LABS: Glucose,Whole Blood 236 mg/dL (75-99)
[2019-08-08 17:00] LABS: Ferritin 270.5 ng/mL (10.0-291.0)
[2019-08-08] MEDS: SODIUM CHLORIDE 0.9% 1,000 ML IV SCH (17:26)
[2019-08-08 17:41] LABS: % Iron Saturation 7.83 (12.00-45.00)
[2019-08-08 18:20] LABS: Hemoglobin A1C 5.6 % (4.0-6.0)
[2019-08-08 18:35] LABS: Hepatitis A Antibody IgM Non-Reactive (Non-Reactive); Hepatitis B Core IgM Non-Reactive (Non-Reactive); Hepatitis B Surface Antigen Non-Reactive (Non-Reactive); Hepatitis C IgG Antibody Non-Reactive (Non-Reactive)
--- NOTE | 2019-08-08 19:06 | MR ---
EXAMINATION TYPE: MR liver wo/w con and mrcp DATE OF EXAM: 08/08/2019 COMPARISON: None HISTORY: Elevated LFTS, bili/Rule out CBD stone Multiplanar multiecho imaging of the abdomen and liver was performed without and with IV contrast. Th e contrast was gadolinium 9 mL. There are 3-D post processed images. FINDINGS: There is irregular signal within the gallbladder that probably relates to multiple gallstones in gall bladder polyps. The bile ducts are not dilated. Liver shows no discrete mass. Spleen is intact. Stoma ch is intact. The kidneys have normal size and contour. There is no hydronephrosis. There is no evide nce of a pancreatic mass. Pancreatic duct is not dilated. The contrast images show no pathologic enha ncement. There is patency of the portal venous system. The bile ducts are not dilated. Common bile du ct is small. There is probably some atelectasis right lung base. IMPRESSION: There is evidence for multiple gallstones in the dependent gallbladder. Mild infiltrate and atelectas is right posterior lung base. No focal liver defect. No dilated ducts. Normal pancreas. Normal MRCP.
[2019-08-08 20:05] LABS: Glucose,Whole Blood 394 mg/dL (75-99)
[2019-08-08] MEDS ORDERED: INSULIN DETEMIR (LEVEMIR) 100 UNIT/ML SYR SQ SCH (23:00)
[2019-08-08] MEDS ORDERED: Magnesium Replacement Protocol 1 EACH MISC MISCELLANE PRN ×2 (23:02→23:59)
[2019-08-09] MEDS: INSULIN DETEMIR (LEVEMIR) 100 UNIT/ML SYR SQ SCH ×2 (00:06→21:56)
[2019-08-09] MEDS: SODIUM CHLORIDE 0.9% 1,000 ML IV SCH ×2 (00:07→09:14)
[2019-08-09] MEDS: MAGNESIUM SULFATE-D5W PMX 1 GM in DEXTROSE/WATER 1 100ML.BAG IVPB SCH ×2 (00:24→01:32)
[2019-08-09 07:13] LABS: Glucose,Whole Blood 135 mg/dL (75-99)
[2019-08-09] MEDS: LEVOTHYROXINE 50 MCG TAB PO SCH (07:33)
[2019-08-09] MEDS: INSULIN ASPART (NovoLOG) 100 UNIT/ML VIAL SQ SCH ×4 (07:33→21:56)
[2019-08-09 07:45] LABS: Basophils % (A) 1 %; Eosinophils # (A) 0.1 k/uL (0-0.7); Eosinophils % (A) 4 %; HCT 32.7 % (34.0-46.0); HGB 10.4 gm/dL (11.4-16.0); Lymphocytes # (A) 0.7 k/uL (1.0-4.8); Lymphocytes % (A) 22 %; MCH 31.9 pg (25.0-35.0); MCHC 31.7 g/dL (31.0-37.0); MCV 100.5 fL (80.0-100.0); Macrocytosis Slight; Mean Platelet Volume 10.7; Monocytes # (A) 0.2 k/uL (0-1.0); Monocytes % (A) 5 %; Neutrophils # (A) 2.2 k/uL (1.3-7.7); Neutrophils % (A) 66 %; Platelet Count 119 k/uL (150-450); RBC 3.26 m/uL (3.80-5.40); RDW 13.3 % (11.5-15.5); WBC 3.3 k/uL (3.8-10.6)
--- NOTE | 2019-08-09 07:45 | P.PN ---
Subjective This is a pleasant 73 years old female with past medical history of diabetes mellitus, hyperlipidemia, hypertension, osteoarthritis, sleep apnea on CPAP/BiPAP. The patient is transferred from [facility] last was showing normal sodium and potassium 07/02/1933 and 4.3 respectively, creatinine normal at 1.0, liver enzymes elevated AST to 78, ALT 207, bilirubin is elevated at 4.9 and direct bilirubin is 3.8. The biopsies mildly elevated at 12.5, hemoglobin 13.3. Platelet 1 5040, INR 1.2, test is negative. Magnesium 1.5, looks like earlier in the admission [facility] liver enzymes were within normal reference range at AST 32 and ALT 29 with total bilirubin is 0.2. CPK is normal at 78. Troponin is negative less than 0.012. Urinalysis is not suspicious of infection. Hemoglobin A1c is 5.5%. Lactic acid 1.6. CT of the abdomen and pelvis with oral and IV contrast: Normal appearing liver and spleen, gallstones, no hydronephrosis. CT of the head: No acute intracranial process and chronic appearing periventricular white matter ischemic changes by radiologist. Ultrasound of the liver: Negative for leg 14.7 cm, with heterogeneous appearance no focal lesion. Gallstones. And sludge in the region of the gallbladder neck CBD 0.4 cm no findings of acute cholecystitis at that time and by radiologist for heterogenicity could be due to nonspecific hepatocellular disease. Doppler of the right lower extremity is negative for DVT. Blood pressure 118/48, she is saturating 95% and breathing rate 20 temperature 36.7 at [facility] By review records when she presented to [facility] her sugar was on the low side in the 40s which is corrected with therapy. She was somewhat confused because she could not remember the day or once she was eating. And she was released from [facility] a few days earlier after she fell at home. However her GCS total score was 15. Patient was found unresponsive by her neighbor so s he was sent to the hospital. Later on her hemoglobin A1c was 5.5% and she was taken 100 units of insulin 70/30 which was stopped, however 2 days ago her liver enzymes and bilirubin start trending up so patient was transferred to the Hospital to Be Evaluated by [employer] This morning patient is fully awake and oriented to time place and person. She knows why she is in a hospital. She states she was living by herself and she was recently discharged from hospital and usually she takes 100 units of insulin 70/30 has been gradually increased over 30 years. Currently patient denies spe cific complaint of chest pain or dyspnea. No abdominal pain. No RUQ tenderness or pain. No nausea vomiting. No change in urine or bowel habits. 08/09/2019 Patient is awake and alert. No abdominal pain. No nausea vomiting. No change in bowel habits as per patient. She was instilled per noted in the wall taper but that was she was waking up, we will keep monitoring. No other complaints. She follows up with Dr. Pichardo as an outpatient. Yesterday she had MRCP which was unremarkable except for gallstones, her hemoglobin A1c is 5.5-5.7%, sugar was more than 300 last night and she was placed on Levemir 10 units at night, her sugar this morning is 135. Rest of labs are pending. Her blood pressure is better this morning 125/70, she continued on normal saline at 75 mL/h. GI team R following the case closely Also on admission her creatinine was elevated at 1.39, which looks like she has some acute kidney injury on admission. Follow-up labs from today Review of systems CONSTITUTIONAL: No fever, no malaise, no fatigue. HEENT: No recent visual problems or hearing problems. Denied any sore throat. CARDIOVASCULAR: No orthopnea, PND, no palpitations, no syncope. PULMONARY: No shortness of breath, no cough, no hemoptysis. GASTROINTESTINAL: No diarrhea, no nausea, no vomiting, no abdominal pain. Normoactive bowel sounds. NEUROLOGICAL: No headaches, no weakness, no numbness. HEMATOLOGICAL: Denies any bleeding or petechiae. GENITOURINARY: Denies any burning micturition, frequency, or urgency. MUSCULOSKELETAL/RHEUMATOLOGICAL: Denies any joint pain, swelling, or any muscle pain. ENDOCRINE: Denies any polyuria or polydipsia. Active Medications Generic Name Dose Route Start Last Admin Trade Name Freq PRN Reason Stop Dose Admin Acetaminophen 650 mg 08/07/19 18:29 Tylenol Tab PO Q6HR PRN Fever and/ or Pain Aspirin 81 mg 08/08/19 09:00 08/08/19 09:04 Aspirin PO 81 mg DAILY [facility]AN Administration Citalopram Hydrobromide 40 mg 08/08/19 09:00 08/08/19 09:05 Celexa PO 40 mg DAILY [facility] Administration Cyanocobalamin 500 mcg 08/08/19 09:00 08/08/19 09:05 Vitamin B-12 PO 500 mcg DAILY [facility] Administration Heparin Sodium (Porcine) 5,000 unit 08/08/19 09:00 08/08/19 20:11 Heparin SQ 5,000 unit Q12HR [facility] Administration Sodium Chloride 1,000 mls @ 75 mls/hr 08/07/19 18:45 08/09/19 00:07 Saline 0.9% IV Not Given .[id number] [facility] Ferric Sodium Gluconate 125 mg 110 mls @ 100 mls/hr 08/09/19 09:00 / Sodium Chloride IVPB 08/11/19 10:05 DAILY A[facility]KAN Insulin Aspart 0 unit 08/08/19 12:30 08/09/19 07:33 Novolog SQ Not Given ACHS [facility] Protocol Insulin Detemir 10 unit 08/08/19 23:00 08/09/19 00:06 Levemir SQ 10 unit HS [facility] Administration Levothyroxine Sodium 50 mcg 08/08/19 06:30 08/09/19 07:33 Synthroid PO Not Given 0630 [facility] Miscellaneous Information 1 each 08/08/19 23:02 Magnesium Per Protocol MISCELLANE DAILY PRN Per Protocol Protocol Miscellaneous Information 1 each 08/08/19 23:59 Magnesium Per Protocol MISCELLANE DAILY PRN Per Protocol Protocol Non-Formulary Medication 500 mg 08/08/19 09:00 08/08/19 09:05 Cranberry Fruit Extract [Cranberry] PO Not Given DAILY A[facility] Oxybutynin Chloride 10 mg 08/08/19 09:00 08/08/19 09:04 Ditropan Xl PO 10 mg DAILY [facility] Administration Pantoprazole Sodium 40 mg 08/08/19 09:00 08/08/19 09:04 Protonix PO 40 mg DAILY [facility] Administration Objective - Vital Signs Vital signs: Vital Signs Temp 98.6 F 08/09/19 05:00 Pulse 63 08/09/19 05:00 Resp 20 08/09/19 05:00 BP 125/70 08/09/19 05:00 Pulse Ox 91 L 08/09/19 05:00 Intake & Output 08/08/19 08/09/19 08/09/19 18:59 06:59 18:59 Intake Total 120 1125 Balance 120 1125 Intake: Intake, IV Titration 925 Amount Magnesium Sulfate-D5w Pmx 200 1 gm In Dextrose/Water 1 100ml.bag @ 100 mls/hr IVPB Q1H [facility] Rx#: [id number] Sodium Chloride 0.9% 1, 725 000 ml @ 75 mls/hr IV . [id number] [facility] Rx#:[id number] Oral 120 200 Other: Voiding Method Toilet Toilet Diaper Diaper Incontinent Incontinent # Voids 1 1 # Bowel Movements 1 - Exam GENERAL: The patient is alert and oriented x3, not in any acute distress. Obese HEENT: Pupils are round and equally reacting to light. EOMI. No scleral icterus. No conjunctival pallor. Normocephalic, atraumatic. No pharyngeal erythema. No thyromegaly. CARDIOVASCULAR: S1 and S2 present. No murmurs, rubs, or gallops. PULMONARY: Chest is clear to auscultation, no wheezing or crackles. ABDOMEN: Soft, nontender, nondistended, normoactive bowel sounds. No palpable organomegaly. MUSCULOSKELETAL: No joint swelling or deformity. EXTREMITIES: No cyanosis, clubbing, or pedal edema. NEUROLOGICAL: Gross neurological examination did not reveal any focal deficits. SKIN: No rashes. no petechiae. - Labs CBC & Chem 7: 08/08/19 07:55 08/08/19 07:55 Labs: Abnormal Lab Results - Last 24 Hours (Table) 08/08/19 08/08/19 08/08/19 Range/Units 07:55 07:55 08:00 RBC 3.32 L (3.80-5.40) m/uL Hgb 10.8 L (11.4-16.0) gm/dL Hct 32.9 L (34.0-46.0) % Plt Count 101 L (150-450) k/uL Lymphocytes # 0.6 L (1.0-4.8) k/uL Sodium 132 L (137-145) mmol/L BUN 23 H (7-17) mg/dL Creatinine 1.39 H (0.52-1.04) mg/dL Glucose 204 H (74-99) mg/dL POC Glucose (mg/dL) (75-99) mg/dL Calcium 7.9 L (8.4-10.2) mg/dL Magnesium 1.5 L (1.6-2.3) mg/dL Iron (50-170) ug/dL TIBC (228-460) ug/dL % Saturation (12.00-45.00) Total Bilirubin 5.5 H (0.2-1.3) mg/dL Conjugated Bilirubin 3.1 H (0.0-0.3) mg/dL Delta Bilirubin 1.4 H (0.0-0.2) mg/dL AST 122 H (14-36) U/L ALT 139 H (4-34) U/L Total Protein 5.1 L (6.3-8.2) g/dL Albumin 2.5 L (3.5-5.0) g/dL Urine Appearance Cloudy H (Clear) Ur Specific [place] 1.050 H (1.001-1.035) Urine Protein 1+ H (Negative) Urine Bilirubin 2+ H (Negative) Urine WBC 9 H (0-5) /hpf Ur Squamous Epith Cells 5 H (0-4) /hpf Urine Bacteria Occasional H (None) /hpf Urine Mucus Rare H (None) /hpf 08/08/19 08/08/19 08/08/19 Range/Units 08:14 11:15 11:31 RBC (3.80-5.40) m/uL Hgb (11.4-16.0) gm/dL Hct (34.0-46.0) % Plt Count (150-450) k/uL Lymphocytes # (1.0-4.8) k/uL Sodium (137-145) mmol/L BUN (7-17) mg/dL Creatinine (0.52-1.04) mg/dL Glucose (74-99) mg/dL POC Glucose (mg/dL) 210 H 299 H (75-99) mg/dL Calcium (8.4-10.2) mg/dL Magnesium (1.6-2.3) mg/dL Iron 17 L (50-170) ug/dL TIBC 217 L (228-460) ug/dL % Saturation 7.83 L (12.00-45.00) Total Bilirubin (0.2-1.3) mg/dL Conjugated Bilirubin (0.0-0.3) mg/dL Delta Bilirubin (0.0-0.2) mg/dL AST (14-36) U/L ALT (4-34) U/L Total Protein (6.3-8.2) g/dL Albumin (3.5-5.0) g/dL Urine Appearance (Clear) Ur Specific [place] (1.001-1.035) Urine Protein (Negative) Urine Bilirubin (Negative) Urine WBC (0-5) /hpf Ur Squamous Epith Cells (0-4) /hpf Urine Bacteria (None) /hpf Urine Mucus (None) /hpf 08/08/19 08/08/19 08/09/19 Range/Units 16:29 20:03 07:11 RBC (3.80-5.40) m/uL Hgb (11.4-16.0) gm/dL Hct (34.0-46.0) % Plt Count (150-450) k/uL Lymphocytes # (1.0-4.8) k/uL Sodium (137-145) mmol/L BUN (7-17) mg/dL Creatinine (0.52-1.04) mg/dL Glucose (74-99) mg/dL POC Glucose (mg/dL) 236 H 394 H 135 H (75-99) mg/dL Calcium (8.4-10.2) mg/dL Magnesium (1.6-2.3) mg/dL Iron (50-170) ug/dL TIBC (228-460) ug/dL % Saturation (12.00-45.00) Total Bilirubin (0.2-1.3) mg/dL Conjugated Bilirubin (0.0-0.3) mg/dL Delta Bilirubin (0.0-0.2) mg/dL AST (14-36) U/L ALT (4-34) U/L Total Protein (6.3-8.2) g/dL Albumin (3.5-5.0) g/dL Urine Appearance (Clear) Ur Specific [place] (1.001-1.035) Urine Protein (Negative) Urine Bilirubin (Negative) Urine WBC (0-5) /hpf Ur Squamous Epith Cells (0-4) /hpf Urine Bacteria (None) /hpf Urine Mucus (None) /hpf Assessment and Plan Assessment: Trending up liver enzymes and bilirubin, transaminitis with possible bile duct obstruction Altered mental status, mostly metabolic encephalopathy due to her medical problems, including hypoglycemia and transaminitis. Completely resolved Generalized weakness Acute kidney injury, present on admission. Possible chronic kidney disease, stage 1-2, secondary to diabetic nephropathy Mildly elevated white cell count Diabetes mellitus with hyperglycemia on presentation. Hemoglobin A1c is 5.5%. Insulin was stopped. Electrolyte abnormality on the presentation with hypokalemia and hypomagnesemia, currently improving Hypertension Hyperlipidemia Osteoarthritis Sleep apnea on CPAP/BiPAP Plan: This is a pleasant 73 years old female who presents with hypoglycemia and tendon of the liver isn't improving. Continue monitoring her liver test and consult GI team for possible ERCP. Continue with insulin sliding scale. Physical therapy and manager social evaluation. Start on Levemir and insulin sliding scale and monitor her progress slowly. Labs and medication were reviewed.. Continue same treatment. Continue with symptomatic treatment. Resume home medication. Monitor lytes and vitals. DVT and GI prophylaxis. Further recommendations of the clinical course of the patient DVT prophylaxis: Subcutaneous heparin GI Prophylaxis: Pepcid PT/OT: Pending Prognosis is guarded
--- NOTE | 2019-08-09 07:45 | P.CONS ---
History of Present Illness - Reason for Consult Consult date: 08/09/19 Elevated bilirubin Requesting physician: Salo E Sheet - Chief Complaint Abnormal laboratory evaluation - History of Present Illness 73-year-old female with a medical history significant for diabetes mellitus, hyperlipidemia, hypertension and MOY who was transferred from [facility] for evaluation of abnormal liver enzymes. Prior to transfer the patient was found to have a total bilirubin 4.9 with a direct bilirubin 3.8, AST 78 and ALT 207 which had increased from admission values with a total bilirubin of 0.2, AST 32 and ALT 29. The patient had computed tomography scan of the abdomen in evaluation with normal appearing liver, spleen with gallstones noted. Ultrasound of the liver again demonstrated gallstones and sludge with no evidence of biliary dilation or obstruction. The patient was being managed for episodes of hypoglycemia. On questioning she denies any prior history of liver or gallbladder disease. She denies any prior history of being told of hepatitis or abnormal liver enzymes. She denies any significant alcohol use. No new medications, antibiotics, or herbal supplementations. The patient is adopted and has an unknown family history. Denies any fevers, chills or other acute complaints. Review of Systems REVIEW OF SYSTEMS: CONSTITUTIONAL: Denies any fevers, chills, weight change or fatigue. CARDIOVASCULAR: Denies any chest pain, palpitations high or low blood pressures RESPIRATORY: Denies any shortness of breath, hemoptysis or cough. GENITOURINARY: No dysuria or hematuria. MUSCULOSKELETAL: No weakness reported. SKIN: Denies any new rashes or lesions, jaundice or pallor. PSYCHIATRIC: Denies any depression or anxiety. NEUROLOGY: Denies headache, denies any new focal deficits. EARS/NOSE/THROAT: No recent hearing change, congestion, nasal discharge or sore throat. EYES: No pain in eyes, discharge or change in vision. GASTROINTESTINAL: As per HPI. Past Medical History Past Medical History: Diabetes Mellitus, Hyperlipidemia, Hypertension, Osteoarthritis (OA), Sleep Apnea/CPAP/BIPAP History of Any Multi-Drug Resistant Organisms: None Reported Past Surgical History: Hysterectomy, Orthopedic Surgery Additional Past Surgical History / Comment(s): bilateral cataract, total right knee Smoking Status: Former smoker Additional History: Family history: Patient is adopted and has an unknown family history. - Past Family History Mother Family Medical History: No Reported History Medications and Allergies Home Medications Medication Instructions Recorded Confirmed Type Aspirin 81 mg PO DAILY 03/06/14 08/07/19 History Enalapril/Hydrochlorothiazide 1 tab PO DAILY 03/06/14 08/07/19 History [Vaseretic 10-25 mg] Insulin NPH/Reg Insulin 70/30 110 unit SQ DAILY 03/06/14 08/07/19 History [humuLIN 70/30 VIAL] Lansoprazole [Prevacid] 30 mg PO DAILY 03/06/14 08/07/19 History Meloxicam [Mobic] 7.5 mg PO BID 03/06/14 08/07/19 History Tolterodine Tartrate [Detrol LA] 4 mg PO DAILY 03/06/14 08/07/19 History Citalopram Hydrobromide [CeleXA] 40 mg PO DAILY 07/28/19 08/07/19 History Cranberry Fruit Extract [Cranberry] 500 mg PO DAILY 07/28/19 08/07/19 History Cyanocobalamin [Vitamin B-12] 500 mcg PO DAILY 07/28/19 08/07/19 History Levothyroxine Sodium [Synthroid] 50 mcg PO DAILY 07/28/19 08/07/19 History Allergies Allergy/AdvReac Type Severity Reaction Status Date / Time No Known Allergies Allergy Verified 08/07/19 18:22 Physical Exam Vitals: Vital Signs Temp Pulse Pulse Resp BP Pulse Ox 08/08/19 11:51 98.1 F 75 16 90/50 93 L 08/08/19 08:35 77 96 16 08/08/19 05:00 98.5 F 77 16 96/56 92 L 08/07/19 20:58 99.5 F 96 16 99/65 93 L 08/07/19 17:30 98.1 F 76 17 151/55 96 Intake and Output 08/07/19 08/08/19 08/08/19 22:59 06:59 14:59 Intake Total 150 600 120 Balance 150 600 120 Intake: Intake, IV Titration 150 600 Amount Sodium Chloride 0.9% 1, 150 600 000 ml @ 75 mls/hr IV . [id number] [facility] Rx#:[id number] Oral 120 Other: Voiding Method Toilet Toilet Toilet Diaper Diaper Diaper Incontinent Incontinent Incontinent # Voids 1 2 # Bowel Movements 1 Weight 90.718 kg On physical examination, patient appears comfortable in no apparent distress. HEAD: Normocephalic, atraumatic. EYES: No scleral icterus. No conjunctival injection. MOUTH: No lesions, tongue midline. NECK: Trachea midline, no gross abnormalities. CHEST: Clear to auscultation with no wheezing or rhonchi appreciated. HEART: Regular rate and rhythm. ABDOMEN: Soft, obese and nontender to palpation. Bowel sounds are positive. No organomegaly. No guarding or rigidity. EXTREMITIES: No pedal edema. SKIN: No rashes, no jaundice. NEUROLOGIC: Alert and oriented x3. No focal deficits. Results CBC & Chem 7: 08/08/19 07:55 08/08/19 07:55 Labs: Abnormal Lab Results - Last 24 Hours (Table) 08/07/19 08/08/19 08/08/19 Range/Units 17:28 07:55 07:55 RBC 3.32 L (3.80-5.40) m/uL Hgb 10.8 L (11.4-16.0) gm/dL Hct 32.9 L (34.0-46.0) % Plt Count 101 L (150-450) k/uL Lymphocytes # 0.6 L (1.0-4.8) k/uL Sodium 132 L (137-145) mmol/L BUN 23 H (7-17) mg/dL Creatinine 1.39 H (0.52-1.04) mg/dL Glucose 204 H (74-99) mg/dL POC Glucose (mg/dL) 259 H (75-99) mg/dL Calcium 7.9 L (8.4-10.2) mg/dL Magnesium 1.5 L (1.6-2.3) mg/dL Total Bilirubin 5.5 H (0.2-1.3) mg/dL Conjugated Bilirubin 3.1 H (0.0-0.3) mg/dL Delta Bilirubin 1.4 H (0.0-0.2) mg/dL AST 122 H (14-36) U/L ALT 139 H (4-34) U/L Total Protein 5.1 L (6.3-8.2) g/dL Albumin 2.5 L (3.5-5.0) g/dL Urine Appearance (Clear) Ur Specific [address] (1.001-1.035) Urine Protein (Negative) Urine Bilirubin (Negative) Urine WBC (0-5) /hpf Ur Squamous Epith Cells (0-4) /hpf Urine Bacteria (None) /hpf Urine Mucus (None) /hpf 08/08/19 08/08/19 08/08/19 Range/Units 08:00 08:14 11:15 RBC (3.80-5.40) m/uL Hgb (11.4-16.0) gm/dL Hct (34.0-46.0) % Plt Count (150-450) k/uL Lymphocytes # (1.0-4.8) k/uL Sodium (137-145) mmol/L BUN (7-17) mg/dL Creatinine (0.52-1.04) mg/dL Glucose (74-99) mg/dL POC Glucose (mg/dL) 210 H 299 H (75-99) mg/dL Calcium (8.4-10.2) mg/dL Magnesium (1.6-2.3) mg/dL Total Bilirubin (0.2-1.3) mg/dL Conjugated Bilirubin (0.0-0.3) mg/dL Delta Bilirubin (0.0-0.2) mg/dL AST (14-36) U/L ALT (4-34) U/L Total Protein (6.3-8.2) g/dL Albumin (3.5-5.0) g/dL Urine Appearance Cloudy H (Clear) Ur Specific [address] 1.050 H (1.001-1.035) Urine Protein 1+ H (Negative) Urine Bilirubin 2+ H (Negative) Urine WBC 9 H (0-5) /hpf Ur Squamous Epith Cells 5 H (0-4) /hpf Urine Bacteria Occasional H (None) /hpf Urine Mucus Rare H (None) /hpf CT scan - abdomen: report reviewed (Computed tomography scan of the abdomen from outside facility with a normal appearing liver with gallstones noted and a nor mal 0.4 cm common bile duct.) Assessment and Plan (1) Elevated bilirubin Narrative/Plan: 73-year-old female with multiple medical comorbidities who was a transfer from [facility] for evaluation for elevated liver enzymes predominantly in a cholestatic pattern with elevated bilirubin. Patient denies any risk factors such as heavy alcohol use, previous hepatitis, previous history of liver disease and has had evaluation with computed tomography scan of the abdomen with a normal-appearing liver, gallstones noted but no ductal dilation or choledocholithiasis and ultrasound of the abdomen which did show some heterogeneity of the liver but a normal CBD of 0.4 cm. No recent antibiotic use or orbital supplementation. She denies any signs or symptoms of infection. Patient does have a history of metabolic syndrome with diabetes mellitus, obesity, hypertension and hyperlipidemia. Unclear etiology with plan for MRCP to rule out choledocholithiasis, may be related to congestive hepatopathy in the setting of right heart failure with plan for echocardiogram for further evaluation of the heart, medication effect or other etiology with plan for full liver serologies to rule out intrinsic liver disease. Current Visit: Yes Status: Acute Code(s): R17 - UNSPECIFIED JAUNDICE SNOMED Code(s): 04722695 (2) Iron deficiency anemia Narrative/Plan: Patient denies any signs or symptoms of GI bleeding. No prior endoscopic evaluation. Current Visit: Yes Status: Acute Code(s): D50.9 - IRON DEFICIENCY ANEMIA, UNSPECIFIED SNOMED Code(s): 01330934 Plan: Supportive care Okay for diet Continue to monitor CBC, CMP Full liver serologies ordered MRCP ordered to rule out choledocholithiasis Plan for echocardiogram Further recommendations based on imaging and laboratory evaluation Patient will need follow-up after discharge for EGD and colonoscopy in the sett ing of iron deficiency anemia Thank you for allowing us to participate in the care of the patient
[2019-08-09 07:56] LABS: Albumin 2.4 g/dL (3.5-5.0); Calcium 8.2 mg/dL (8.4-10.2); Magnesium 2.1 mg/dL (1.6-2.3); Potassium 3.7 mmol/L (3.5-5.1); Total Bilirubin 4.7 mg/dL (0.2-1.3)
[2019-08-09] MEDS: NON FORMULARY DRUG (Cranberry Fruit Extract [Cranberry] 500 MG) PO SCH (09:10)
[2019-08-09] MEDS: OXYBUTYNIN XL 5 MG TAB.ER.24 PO SCH (09:13)
[2019-08-09] MEDS: CITALOPRAM HYDROBROMIDE 20 MG TAB PO SCH (09:13)
[2019-08-09] MEDS: CYANOCOBALAMIN 500 MCG TAB PO SCH (09:13)
[2019-08-09] MEDS: PANTOPRAZOLE 40 MG TABLET PO SCH (09:13)
[2019-08-09] MEDS: SODIUM FERRIC GLUCONAT-SUCROSE 125 MG in SODIUM CHLORIDE 0.9% 100 ML IVPB SCH (09:13)
[2019-08-09] MEDS: HEPARIN SODIUM,PORCINE 5,000 UNIT/ML 1 ML VIAL SQ SCH ×2 (10:13→21:56)
[2019-08-09] MEDS: ASPIRIN 81 MG PO SCH (10:13)
[2019-08-09 10:47] LABS: Ceruloplasmin 27.5 mg/dL (20.0-60.0)
[2019-08-09 11:41] LABS: Glucose,Whole Blood 140 mg/dL (75-99)
--- NOTE | 2019-08-09 12:10 | CDI ---
Documentation Clarification Form Date: 08/09/2019 12:08:52 PM From: Heather LawJOVANNI, CCDS Admit Date: 08/07/2019 05:06:00 PM Patient Name: Heather Taylor Visit Number: [id number] Discharge Date: ATTENTION: The Clinical Documentation Specialists (CDI) and [facility] Coding Staff appreciate your assistance in clarifying documentation. Please respond to the clarification below the line at the bottom and electronically sign. The CDI & [facility] Coding staff will review the response and follow-up if needed. Please note: Queries are made part of the Legal Health Record. If you have any questions, please contact the author of this message via ITS. Dr. Leong Sheet: Per the 08/09 attending progress note: "Possible chronic kidney disease, stage 1- 2, secondary to diabetic nephropathy." Patient history/risk factors: DM II, Hypertension, Sleep apnea, Hyperlipidemia & Osteoarthritis. Clinical Indicators: Presented as a transfer from [facility] on 08/08 with elevated liver enzymes for a GI evaluation. Diagnosed with possible bile duct obstruction & altered mental status, mostly metabolic encephalopathy, acute renal failure & hyperglycemic on presentation. Labs: GFR 08/08: 38; GFR 08/09: 45 Vital Signs 08/07: BP 151/55. Treatment: 08/07: IV fluid 1,000 mls @ 75/hr. 08/08: IV Protonix, IV Magnesium Sulfate/Dextrose & IV Ativan. 08/09: IV Ferric Na Gluconate. In order to capture the severity of condition, please clarify if the condition signifies: CKD Stage 3 (GFR 30-59) Other, please specify Unable to determine (Last Revision: September 2017) please refer to my note MTDD
[2019-08-09 13:39] LABS: Liver/Kidney Microsome Antibod 0.5 UNITS (<=20)
--- NOTE | 2019-08-09 16:38 | ECHOF ---
Referral Reason:elevated LFTS/Bili, rule out CHF MEASUREMENTS -------- HEIGHT: 152.4 cm WEIGHT: 90.7 kg BP: 125/70 IVSd: 1.1 cm (0.6 - 1.1) LVIDd: 4.7 cm (3.9 - 5.3) LVPWd: 1.2 cm (0.6 - 1.1) IVSs: 1.6 cm LVIDs: 3.1 cm LVPWs: 2.0 cm LA Diam: 3.4 cm (2.7 - 3.8) RVIDd: 3.3 cm (< 3.3) LAESV Index (A-L): 20.84 ml/m Ao Diam: 2.8 cm (2.0 - 3.7) AV Cusp: 1.8 cm (1.5 - 2.6) EPSS: 0.5 cm MV E Dar: 1.29 m/s MV DecT: 235 ms MV A Dar: 1.21 m/s MV E/A Ratio: 1.07 AV maxP.00 mmHg AV meanP.28 mmHg RAP: 5.00 mmHg RVSP: 38.58 mmHg MV EF SLOPE: 49.24 mm/s (70 - 150) MV EXCURSION: 11.71 mm (> 18.000) FINDINGS -------- Sinus rhythm. This was a technically adequate study. The left ventricular size is normal. There is borderline concentric left ventricular hypertrophy. Overall left ventricular systolic function is normal with, an EF between 55 - 60 %. The right ventricle is mildly enlarged. Normal LA size by volume 22+/-6 ml/m2. The right atrium is normal in size. Interatrial and interventricular septum intact. There is mild aortic valve sclerosis. There is mild aortic regurgitation. There is mild aortic st enosis present. Peak/mean gradient across the Aortic Valve is 16.00mmHg / 8.28mmHg. The mitral valve leaflets are mildly thickened. Mild mitral annular calcification present. There is trace mitral regurgitation. Mild tricuspid regurgitation present. There is mild pulmonary hypertension. The right ventricular systolic pressure, as measured by Doppler, is 38.58mmHg. Trace/mild (physiologic) pulmonic regurgitation. The aortic root size is normal. Normal inferior vena cava with normal inspiratory collapse consistent with estimated right atrial pre ssure of 5 mmHg. The inferior vena cava is mildly dilated. There is no pericardial effusion. CONCLUSIONS -------- 1. Sinus rhythm. 2. This was a technically adequate study. 3. The left ventricular size is normal. 4. There is borderline concentric left ventricular hypertrophy. 5. Overall left ventricular systolic function is normal with, an EF between 55 - 60 %. 6. The right ventricle is mildly enlarged. 7. Normal LA size by volume 22+/-6 ml/m2. 8. The right atrium is normal in size. 9. Interatrial and interventricular septum intact. 10. There is mild aortic valve sclerosis. 11. There is mild aortic regurgitation. 12. There is mild aortic stenosis present. 13. Peak/mean gradient across the Aortic Valve is 16.00mmHg / 8.28mmHg. 14. The mitral valve leaflets are mildly thickened. 15. Mild mitral annular calcification present. 16. There is trace mitral regurgitation. 17. Mild tricuspid regurgitation present. 18. There is mild pulmonary hypertension. 19. The right ventricular systolic pressure, as measured by Doppler, is 38.58mmHg. 20. Trace/mild (physiologic) pulmonic regurgitation. 21. The aortic root size is normal. 22. Normal inferior vena cava with normal inspiratory collapse consistent with estimated right atrial pressure of 5 mmHg. 23. The inferior vena cava is mildly dilated. 24. There is no pericardial effusion. [employer] OPERATOR: Neelam Clemons RDCS
[2019-08-09 17:19] LABS: Glucose,Whole Blood 171 mg/dL (75-99)
[2019-08-09 21:50] LABS: Glucose,Whole Blood 170 mg/dL (75-99)
[2019-08-09 22:43] VITALS: RESP 18
--- NOTE | 2019-08-10 00:20 | P.PN ---
Subjective Progress Note Date: 08/10/19 Principal diagnosis: Elevated bilirubin Patient is seen lying in bed denies any nausea or vomiting. No abdominal pain. Tolerating diet. Objective - Vital Signs Vital signs: Vital Signs Temp 98.3 F 08/09/19 11:33 Pulse 60 08/09/19 11:33 Resp 16 08/09/19 11:33 BP 112/62 08/09/19 11:33 Pulse Ox 92 L 08/09/19 11:33 Intake & Output 08/09/19 08/09/19 08/10/19 06:59 18:59 06:59 Intake Total 1125 700 Balance 1125 700 Intake: Intake, IV Titration 925 700 Amount Magnesium Sulfate-D5w Pmx 200 1 gm In Dextrose/Water 1 100ml.bag @ 100 mls/hr IVPB Q1H [facility] Rx#: [id number] Sodium Chloride 0.9% 1, 725 600 000 ml @ 75 mls/hr IV . [id number] [facility] Rx#:[id number] Sodium Ferric Gluconat- 100 Sucrose 125 mg In Sodium Chloride 0.9% 100 ml @ 100 mls/hr IVPB DAILY [facility] Rx#:[id number] Oral 200 Other: Voiding Method Toilet Toilet Diaper Diaper Incontinent Incontinent # Voids 1 1 - Exam On physical examination, patient appears comfortable in no apparent distress. HEAD: Normocephalic, atraumatic. EYES: No scleral icterus. No conjunctival injection. MOUTH: No lesions, tongue midline. NECK: Trachea midline, no gross abnormalities. ABDOMEN: Soft, obese. Bowel sounds are positive. No organomegaly. No guarding or rigidity. EXTREMITIES: No pedal edema. SKIN: No rashes, no jaundice. NEUROLOGIC: Alert and oriented x3. No focal deficits. - Labs CBC & Chem 7: 08/09/19 06:35 08/09/19 06:35 Labs: Abnormal Lab Results - Last 24 Hours (Table) 08/09/19 08/09/19 08/09/19 Range/Units 06:35 06:35 07:11 WBC 3.3 L (3.8-10.6) k/uL RBC 3.26 L (3.80-5.40) m/uL Hgb 10.4 L (11.4-16.0) gm/dL Hct 32.7 L (34.0-46.0) % MCV 100.5 H (80.0-100.0) fL Plt Count 119 L (150-450) k/uL Lymphocytes # 0.7 L (1.0-4.8) k/uL Sodium 134 L (137-145) mmol/L BUN 23 H (7-17) mg/dL Creatinine 1.21 H (0.52-1.04) mg/dL Glucose 128 H (74-99) mg/dL POC Glucose (mg/dL) 135 H (75-99) mg/dL Calcium 8.2 L (8.4-10.2) mg/dL Total Bilirubin 4.7 H (0.2-1.3) mg/dL AST 102 H (14-36) U/L ALT 112 H (4-34) U/L Total Protein 5.0 L (6.3-8.2) g/dL Albumin 2.4 L (3.5-5.0) g/dL 08/09/19 08/09/19 Range/Units 11:38 17:17 WBC (3.8-10.6) k/uL RBC (3.80-5.40) m/uL Hgb (11.4-16.0) gm/dL Hct (34.0-46.0) % MCV (80.0-100.0) fL Plt Count (150-450) k/uL Lymphocytes # (1.0-4.8) k/uL Sodium (137-145) mmol/L BUN (7-17) mg/dL Creatinine (0.52-1.04) mg/dL Glucose (74-99) mg/dL POC Glucose (mg/dL) 140 H 171 H (75-99) mg/dL Calcium (8.4-10.2) mg/dL Total Bilirubin (0.2-1.3) mg/dL AST (14-36) U/L ALT (4-34) U/L Total Protein (6.3-8.2) g/dL Albumin (3.5-5.0) g/dL Assessment and Plan (1) Elevated bilirubin Narrative/Plan: 73-year-old female with multiple medical comorbidities who was a transfer from [facility] for evaluation for elevated liver enzymes predominantly in a cholestatic pattern with elevated bilirubin. Patient denies any risk factors such as heavy alcohol use, previous hepatitis, previous history of liver disease and has had evaluation with computed tomography scan of the abdomen with a normal-appearing liver, gallstones noted but no ductal dilation or chol edocholithiasis and ultrasound of the abdomen which did show some heterogeneity of the liver but a normal CBD of 0.4 cm. No recent antibiotic use or orbital supplementation. She denies any signs or symptoms of infection. Patient does have a history of metabolic syndrome with diabetes mellitus, obesity, hypertension and hyperlipidemia. Unclear etiology with plan for MRCP to rule out choledocholithiasis, may be related to congestive hepatopathy in the setting of right heart failure with plan echocardiogram showing some tricuspid regurgitation with preserved ejection fraction, medication effect or other etiology with plan for full liver serologies to rule out intrinsic liver disease which has been negative today . Current Visit: Yes Status: Acute Code(s): R17 - UNSPECIFIED JAUNDICE SNOMED Code(s): 10224875 Plan: Supportive care Okay for diet Continue to monitor CBC, CMP Full liver serologies ordered, and negative to date MRCP ordered to rule out choledocholithiasis Plan for echocardiogram, which showed preserved ejection fraction with aortic stenosis and tricuspid regurgitation If liver enzymes remain elevated and consider biopsy of the liver for further characterization Patient will need follow-up after discharge for EGD and colonoscopy in the setting of iron deficiency anemia Thank you for allowing us to participate in the care of the patient
[2019-08-10] MEDS: SODIUM CHLORIDE 0.9% 1,000 ML IV SCH ×2 (04:40→07:27)
[2019-08-10] MEDS: LEVOTHYROXINE 50 MCG TAB PO SCH (05:45)
[2019-08-10 07:11] LABS: Glucose,Whole Blood 145 mg/dL (75-99)
[2019-08-10] MEDS: CITALOPRAM HYDROBROMIDE 20 MG TAB PO SCH (07:26)
[2019-08-10] MEDS: OXYBUTYNIN XL 5 MG TAB.ER.24 PO SCH (07:26)
[2019-08-10] MEDS: CYANOCOBALAMIN 500 MCG TAB PO SCH (07:26)
[2019-08-10] MEDS: ASPIRIN 81 MG PO SCH (07:26)
[2019-08-10] MEDS: HEPARIN SODIUM,PORCINE 5,000 UNIT/ML 1 ML VIAL SQ SCH (07:27)
[2019-08-10] MEDS: INSULIN ASPART (NovoLOG) 100 UNIT/ML VIAL SQ SCH ×3 (07:27→17:42)
[2019-08-10] MEDS: PANTOPRAZOLE 40 MG TABLET PO SCH (07:27)
[2019-08-10 07:43] LABS: Basophils % (A) 1 %; Eosinophils # (A) 0.1 k/uL (0-0.7); Eosinophils % (A) 2 %; HCT 37.4 % (34.0-46.0); HGB 11.9 gm/dL (11.4-16.0); Lymphocytes # (A) 0.7 k/uL (1.0-4.8); Lymphocytes % (A) 13 %; MCH 32.5 pg (25.0-35.0); MCHC 31.9 g/dL (31.0-37.0); MCV 101.9 fL (80.0-100.0); Macrocytosis Slight; Mean Platelet Volume 10.1; Monocytes # (A) 0.3 k/uL (0-1.0); Monocytes % (A) 6 %; Neutrophils # (A) 3.9 k/uL (1.3-7.7); Neutrophils % (A) 77 %; Platelet Count 136 k/uL (150-450); RBC 3.67 m/uL (3.80-5.40); RDW 13.3 % (11.5-15.5)
--- NOTE | 2019-08-10 07:43 | P.PN ---
Subjective This is a pleasant 73 years old female with past medical history of diabetes mellitus, hyperlipidemia, hypertension, osteoarthritis, sleep apnea on CPAP/BiPAP. The patient is transferred from [facility] last was showing normal sodium and potassium 07/02/1933 and 4.3 respectively, creatinine normal at 1.0, liver enzymes elevated AST to 78, ALT 207, bilirubin is elevated at 4.9 and direct bilirubin is 3.8. The biopsies mildly elevated at 12.5, hemoglobin 13.3. Platelet 1 5040, INR 1.2, test is negative. Magnesium 1.5, looks like earlier in the admission [place] liver enzymes were within normal reference range at AST 32 and ALT 29 with total bilirubin is 0.2. CPK is normal at 78. Troponin is negative less than 0.012. Urinalysis is not suspicious of infection. Hemoglobin A1c is 5.5%. Lactic acid 1.6. CT of the abdomen and pelvis with oral and IV contrast: Normal appearing liver and spleen, gallstones, no hydronephrosis. CT of the head: No acute intracranial process and chronic appearing periventricular white matter ischemic changes by radiologist. Ultrasound of the liver: Negative for leg 14.7 cm, with heterogeneous appearance no focal lesion. Gallstones. And sludge in the region of the gallbladder neck CBD 0.4 cm no findings of acute cholecystitis at that time and by radiologist for heterogenicity could be due to nonspecific hepatocellular disease. Doppler of the right lower extremity is negative for DVT. Blood pressure 118/48, she is saturating 95% and breathing rate 20 temperature 36.7 at [place] By review records when she presented to [facility] her sugar was on the low side in the 40s which is corrected with therapy. She was somewhat confused because she could not remember the day or once she was eating. And she was released from [facility] a few days earlier after she fell at home. However her GCS total score was 15. Patient was found unresponsive by her neighbor so s he was sent to the hospital. Later on her hemoglobin A1c was 5.5% and she was taken 100 units of insulin 70/30 which was stopped, however 2 days ago her liver enzymes and bilirubin start trending up so patient was transferred to the Hospital to Be Evaluated by Log Stacker Operator This morning patient is fully awake and oriented to time place and person. She knows why she is in a hospital. She states she was living by herself and she was recently discharged from hospital and usually she takes 100 units of insulin 70/30 has been gradually increased over 30 years. Currently patient denies spe cific complaint of chest pain or dyspnea. No abdominal pain. No RUQ tenderness or pain. No nausea vomiting. No change in urine or bowel habits. 08/09/2019 Patient is awake and alert. No abdominal pain. No nausea vomiting. No change in bowel habits as per patient. She was instilled per noted in the expander but that was she was waking up, we will keep monitoring. No other complaints. She follows up with Dr. Pichardo as an outpatient. Yesterday she had MRCP which was unremarkable except for gallstones, her hemoglobin A1c is 5.5-5.7%, sugar was more than 300 last night and she was placed on Levemir 10 units at night, her sugar this morning is 135. Rest of labs are pending. Her blood pressure is better this morning 125/70, she continued on normal saline at 75 mL/h. GI team R following the case closely Also on admission her creatinine was elevated at 1.39, which looks like she has some acute kidney injury on admission. Follow-up labs from today 08/10/2019 Patient is fully awake and oriented, she Understands clearly that illness and instructions. I reviewed her problems and the plan and she verbalized understanding and acceptance. She is aware that her liver enzymes are elevated, workup so far has been negative, still some of the serological tests are still pending, if all tests keep to be negative patient might need eventually liver biopsy and patient agrees with that. Also instructed patient recommendation to follow up with GI services upon discharge for possible EGD/colonoscopy and also she agrees Other than that she is doing well, she has some abdominal aortic today however no nausea vomiting, she has good appetite and no bowel issues. No other complaints. Vital stable. Sugar controlled. Labs are still pending. She is currently on Levemir 10 units, and IV iron. Continue with IV fluids of normal saline and follow-up creatinine level Objective - Vital Signs Vital signs: Vital Signs Temp 98.5 F 08/10/19 05:00 Pulse 72 08/10/19 05:00 Resp 18 08/10/19 05:00 BP 120/69 08/10/19 05:00 Pulse Ox 93 L 08/10/19 05:00 Intake & Output 08/09/19 08/10/19 08/10/19 18:59 06:59 18:59 Intake Total 700 Balance 700 Intake: Intake, IV Titration 700 Amount Sodium Chloride 0.9% 1, 600 000 ml @ 75 mls/hr IV . [id number] [facility] Rx#:[id number] Sodium Ferric Gluconat- 100 Sucrose 125 mg In Sodium Chloride 0.9% 100 ml @ 100 mls/hr IVPB DAILY [facility] Rx#:[id number] Other: Voiding Method Toilet Toilet Diaper Diaper Incontinent Incontinent # Voids 1 3 - Exam GENERAL: The patient is alert and oriented x3, not in any acute distress. Obese HEENT: Pupils are round and equally reacting to light. EOMI. No scleral icterus. No conjunctival pallor. Normocephalic, atraumatic. No pharyngeal erythema. No thyromegaly. CARDIOVASCULAR: S1 and S2 present. No murmurs, rubs, or gallops. PULMONARY: Chest is clear to auscultation, no wheezing or crackles. ABDOMEN: Soft, nontender, nondistended, normoactive bowel sounds. No palpable organomegaly. MUSCULOSKELETAL: No joint swelling or deformity. EXTREMITIES: No cyanosis, clubbing, or pedal edema. NEUROLOGICAL: Gross neurological examination did not reveal any focal deficits. SKIN: No rashes. no petechiae. - Labs CBC & Chem 7: 08/09/19 06:35 08/09/19 06:35 Labs: Abnormal Lab Results - Last 24 Hours (Table) 08/09/19 08/09/19 08/09/19 Range/Units 06:35 06:35 06:35 WBC 3.3 L (3.8-10.6) k/uL RBC 3.26 L (3.80-5.40) m/uL Hgb 10.4 L (11.4-16.0) gm/dL Hct 32.7 L (34.0-46.0) % MCV 100.5 H (80.0-100.0) fL Plt Count 119 L (150-450) k/uL Lymphocytes # 0.7 L (1.0-4.8) k/uL Sodium 134 L (137-145) mmol/L BUN 23 H (7-17) mg/dL Creatinine 1.21 H (0.52-1.04) mg/dL Glucose 128 H (74-99) mg/dL POC Glucose (mg/dL) (75-99) mg/dL Calcium 8.2 L (8.4-10.2) mg/dL Total Bilirubin 4.7 H (0.2-1.3) mg/dL AST 102 H (14-36) U/L ALT 112 H (4-34) U/L Total Protein 5.0 L (6.3-8.2) g/dL Albumin 2.4 L (3.5-5.0) g/dL Vitamin B12 1190.0 H (200.0-944.0) pg/mL 08/09/19 08/09/19 08/09/19 Range/Units 11:38 17:17 21:49 WBC (3.8-10.6) k/uL RBC (3.80-5.40) m/uL Hgb (11.4-16.0) gm/dL Hct (34.0-46.0) % MCV (80.0-100.0) fL Plt Count (150-450) k/uL Lymphocytes # (1.0-4.8) k/uL Sodium (137-145) mmol/L BUN (7-17) mg/dL Creatinine (0.52-1.04) mg/dL Glucose (74-99) mg/dL POC Glucose (mg/dL) 140 H 171 H 170 H (75-99) mg/dL Calcium (8.4-10.2) mg/dL Total Bilirubin (0.2-1.3) mg/dL AST (14-36) U/L ALT (4-34) U/L Total Protein (6.3-8.2) g/dL Albumin (3.5-5.0) g/dL Vitamin B12 (200.0-944.0) pg/mL 08/10/19 Range/Units 07:09 WBC (3.8-10.6) k/uL RBC (3.80-5.40) m/uL Hgb (11.4-16.0) gm/dL Hct (34.0-46.0) % MCV (80.0-100.0) fL Plt Count (150-450) k/uL Lymphocytes # (1.0-4.8) k/uL Sodium (137-145) mmol/L BUN (7-17) mg/dL Creatinine (0.52-1.04) mg/dL Glucose (74-99) mg/dL POC Glucose (mg/dL) 145 H (75-99) mg/dL Calcium (8.4-10.2) mg/dL Total Bilirubin (0.2-1.3) mg/dL AST (14-36) U/L ALT (4-34) U/L Total Protein (6.3-8.2) g/dL Albumin (3.5-5.0) g/dL Vitamin B12 (200.0-944.0) pg/mL Assessment and Plan Assessment: Trending up liver enzymes and bilirubin, transaminitis with possible bile duct obstruction Altered mental status, mostly metabolic encephalopathy due to her medical problems, including hypoglycemia and transaminitis. Completely resolved Generalized weakness Acute kidney injury, present on admission. Possible chronic kidney disease, stage 1-2, secondary to diabetic nephropathy Mildly elevated white cell count Diabetes mellitus with hyperglycemia on presentation. Hemoglobin A1c is 5.5%. Insulin was stopped. Electrolyte abnormality on the presentation with hypokalemia and hypomagnesemia, currently improving Hypertension Hyperlipidemia Osteoarthritis Sleep apnea on CPAP/BiPAP Plan: This is a pleasant 73 years old female who presents with hypoglycemia and tendon of the liver isn't improving. Continue monitoring her liver test and follow-up recommendation by GI team. Patient might need liver biopsy. Continue with insulin sliding scale. Physical therapy and group social worker evaluation. Start on Levemir and insulin sliding scale and monitor her progress slowly. Labs and medication were reviewed.. Continue same treatment. Continue with symptomatic treatment. Resume home medication. Monitor lytes and vitals. DVT and GI prophylaxis. Further recommendations of the clinical course of the patient DVT prophylaxis: Subcutaneous heparin GI Prophylaxis: Pepcid PT/OT: Pending Prognosis is guarded
[2019-08-10] MEDS ORDERED: SODIUM CHLORIDE 0.9% 1,000 ML IV SCH (07:45)
[2019-08-10 07:52] LABS: Albumin 2.7 g/dL (3.5-5.0); Calcium 8.4 mg/dL (8.4-10.2); Potassium 3.8 mmol/L (3.5-5.1); Total Protein 5.4 g/dL (6.3-8.2)
--- NOTE | 2019-08-10 09:00 | CDI ---
Documentation Clarification Form Date: 08/09/2019 12:08:00 PM From: Heather LawJOVANNI noe, CCDS Admit Date: 08/07/2019 05:06:00 PM Patient Name: Heather Taylor Visit Number: [id number] Discharge Date: ATTENTION: The Clinical Documentation Specialists (CDI) and [facility] Coding Staff appreciate your assistance in clarifying documentation. Please respond to the clarification below the line at the bottom and electronically sign. The CDI & [facility] Coding staff will review the response and follow-up if needed. Please note: Queries are made part of the Legal Health Record. If you have any questions, please contact the author of this message via ITS. Dr. Salo Russ: Thank you, Dr. Russ for responding to this query. Please specify a specific stage of CKD; ie: Stage I, Stage II, etc. Per the 08/09 attending progress note: "Possible chronic kidney disease, stage 1- 2, secondary to diabetic nephropathy." Patient history/risk factors: DM II, Hypertension, Sleep apnea, Hyperlipidemia & Osteoarthritis. Clinical Indicators: Presented as a transfer from [facility] on 08/08 with elevated liver enzymes for a GI evaluation. Diagnosed with possible bile duct obstruction & altered mental status, mostly metabolic encephalopathy, acute renal failure & hyperglycemic on presentation. Labs: GFR 08/08: 38; GFR 08/09: 45 Vital Signs 08/07: BP 151/55. Treatment: 08/07: IV fluid 1,000 mls @ 75/hr. 08/08: IV Protonix, IV Magnesium Sulfate/Dextrose & IV Ativan. 08/09: IV Ferric Na Gluconate. In order to capture the severity of the condition, please clarify a specific stage of CKD: CKD Stage 1 (GFR >90) CKD Stage 2 (GFR 60-89) CKD Stage 3 (GFR 30-59) Other, please specify Unable to determine (Last Revision: September 2017) please refer to my note it has all the diagnoses for her kidney disease thank you DILCIA
[2019-08-10] MEDS: SODIUM FERRIC GLUCONAT-SUCROSE 125 MG in SODIUM CHLORIDE 0.9% 100 ML IVPB SCH (09:30)
[2019-08-10] MEDS: NON FORMULARY DRUG (Cranberry Fruit Extract [Cranberry] 500 MG) PO SCH (09:58)
[2019-08-10 11:23] LABS: Glucose,Whole Blood 183 mg/dL (75-99)
[2019-08-10 12:01] VITALS: BP 132/78; PULSE 75; TEMP 97.8
[2019-08-10 17:03] LABS: Glucose,Whole Blood 228 mg/dL (75-99)
--- NOTE | 2019-08-11 15:48 | P.PN ---
Subjective Progress Note Date: 08/11/19 Principal diagnosis: Elevated bilirubin Patient is seen lying in bed denies any acute events. Tolerating her diet. No nausea or vomiting. No abdominal pain. Objective - Vital Signs Vital signs: Vital Signs Temp 97.8 F 08/10/19 12:00 Pulse 75 08/10/19 12:00 Resp 18 08/10/19 12:00 BP 132/78 08/10/19 12:00 Pulse Ox 95 08/10/19 12:00 Intake & Output 08/09/19 08/10/19 08/10/19 18:59 06:59 18:59 Intake Total 700 Balance 700 Intake: Intake, IV Titration 700 Amount Sodium Chloride 0.9% 1, 600 000 ml @ 75 mls/hr IV . [id number] [facility] Rx#:[id number] Sodium Ferric Gluconat- 100 Sucrose 125 mg In Sodium Chloride 0.9% 100 ml @ 100 mls/hr IVPB DAILY [facility] Rx#:[id number] Other: Voiding Method Toilet Toilet Toilet Diaper Diaper Diaper Incontinent Incontinent Incontinent # Voids 1 3 - Exam On physical examination, patient appears comfortable in no apparent distress. HEAD: Normocephalic, atraumatic. EYES: No scleral icterus. No conjunctival injection. MOUTH: No lesions, tongue midline. NECK: Trachea midline, no gross abnormalities. ABDOMEN: Soft, obese. Bowel sounds are positive. No organomegaly. No guarding or rigidity. EXTREMITIES: No pedal edema. SKIN: No rashes, no jaundice. NEUROLOGIC: Alert and oriented x3. No focal deficits. - Labs CBC & Chem 7: 08/10/19 06:56 08/10/19 06:56 Labs: Abnormal Lab Results - Last 24 Hours (Table) 08/09/19 08/09/19 08/09/19 Range/Units 06:35 17:17 21:49 RBC (3.80-5.40) m/uL MCV (80.0-100.0) fL Plt Count (150-450) k/uL Lymphocytes # (1.0-4.8) k/uL Sodium (137-145) mmol/L Glucose (74-99) mg/dL POC Glucose (mg/dL) 171 H 170 H (75-99) mg/dL Total Bilirubin (0.2-1.3) mg/dL AST (14-36) U/L ALT (4-34) U/L Alkaline Phosphatase (38-126) U/L Total Protein (6.3-8.2) g/dL Albumin (3.5-5.0) g/dL Vitamin B12 1190.0 H (200.0-944.0) pg/mL 08/10/19 08/10/19 08/10/19 Range/Units 06:56 06:56 07:09 RBC 3.67 L (3.80-5.40) m/uL MCV 101.9 H (80.0-100.0) fL Plt Count 136 L (150-450) k/uL Lymphocytes # 0.7 L (1.0-4.8) k/uL Sodium 134 L (137-145) mmol/L Glucose 135 H (74-99) mg/dL POC Glucose (mg/dL) 145 H (75-99) mg/dL Total Bilirubin 6.0 H (0.2-1.3) mg/dL AST 125 H (14-36) U/L ALT 110 H (4-34) U/L Alkaline Phosphatase 148 H (38-126) U/L Total Protein 5.4 L (6.3-8.2) g/dL Albumin 2.7 L (3.5-5.0) g/dL Vitamin B12 (200.0-944.0) pg/mL 08/10/19 Range/Units 11:21 RBC (3.80-5.40) m/uL MCV (80.0-100.0) fL Plt Count (150-450) k/uL Lymphocytes # (1.0-4.8) k/uL Sodium (137-145) mmol/L Glucose (74-99) mg/dL POC Glucose (mg/dL) 183 H (75-99) mg/dL Total Bilirubin (0.2-1.3) mg/dL AST (14-36) U/L ALT (4-34) U/L Alkaline Phosphatase (38-126) U/L Total Protein (6.3-8.2) g/dL Albumin (3.5-5.0) g/dL Vitamin B12 (200.0-944.0) pg/mL Assessment and Plan (1) Elevated bilirubin Narrative/Plan: 73-year-old female with multiple medical comorbidities who was a transfer from [facility] for evaluation for elevated liver enzymes predominantly in a cholestatic pattern with elevated bilirubin. Patient denies any risk factors such as heavy alcohol use, previous hepatitis, previous history of liver disease and has had evaluation with computed tomography scan of the abdomen with a normal-appearing liver, gallstones noted but no ductal dilation or choledocholithiasis and ultrasound of the abdomen which did show some heterogeneity of the liver but a normal CBD of 0.4 cm. No recent antibiotic use or orbital supplementation. She denies any signs or symptoms of infection. Patient does have a history of metabolic syndrome with diabetes mellitus, obesity, hypertension and hyperlipidemia. Unclear etiology with plan for MRCP to rule out choledocholithiasis, may be related to congestive hepatopathy in the setting of right heart failure with plan echocardiogram showing some tricuspid r egurgitation with preserved ejection fraction, medication effect or other etiology with plan for full liver serologies to rule out intrinsic liver disease which has been negative to date. Status: Acute Code(s): R17 - UNSPECIFIED JAUNDICE SNOMED Code(s): 14913537 Plan: Supportive care Okay for diet Continue to monitor CBC, CMP Full liver serologies ordered, and negative to date MRCP ordered to rule out choledocholithiasis Plan for echocardiogram, which showed preserved ejection fraction with aortic stenosis and tricuspid regurgitation Okay for discharge will plan for outpatient liver biopsy after antiplatelet/aspirin has been held for 7 days with follow-up with gastroenterology one week after biopsy for results Patient will need follow-up after discharge for EGD and colonoscopy in the setting of iron deficiency anemia Thank you for allowing us to participate in the care of the patient
--- NOTE | 2019-08-15 14:48 | CDI ---
Documentation Clarification Form Date: 08/15/19 From: Deedee Jones CCS Phone: If you have a question about this query, please contact Gladis Leavitt, Professor Of Violin at [phone] between 8am and 5pm. Admit Date: 08/07/19 Discharge Date: 08/10/19 Patient Name: Heather Taylor Visit Number: [id number] ATTENTION: The Clinical Documentation Specialists (CDI) and [facility] Coding Staff appreciate your assistance in clarifying documentation. Please respond to the clarification below the line at the bottom and electronically sign. The CDI & [facility] Coding staff will review the response and follow-up if needed. Please note: Queries are made part of the Legal Health Record. If you have any questions, please contact the author of this message via ITS. Dear Dr. Russ, Your patient has a documented diagnosis of hypokalemia which may lack sufficient clinical evidence/support. History/Risk Factors: DM, CKD, HTN Clinical Indicators: Weakness, BELLA Based on the clinical evidence and your professional judgment, do you feel hypokalemia is a valid diagnosis? Yes, hypokalemia present/active during this admission as evidence by (additional clinical support): No, hypokalemia was ruled out Other (please specify diagnosis) Unable to determine not my pt MTDD
--- NOTE | 2019-08-23 16:37 | CDI ---
Documentation Clarification Form Date: 08/23/19 From: Deedee Jones CCS Phone: If you have a question about this query, please contact Gladis Leavitt, [employer] at [phone] between 8am and 5pm. Admit Date: 08/07/19 Discharge Date: 08/10/19 Patient Name: Heather Taylor Visit Number: [id number] ATTENTION: The Clinical Documentation Specialists (CDI) and [facility] Coding Staff appreciate your assistance in clarifying documentation. Please respond to the clarification below the line at the bottom and electronically sign. The CDI & [facility] Coding staff will review the response and follow-up if needed. Please note: Queries are made part of the Legal Health Record. If you have any questions, please contact the author of this message via ITS. Dear Dr. Russ, Hypokalemia is documented in your H&P, 08/09 PN, and 08/10 Addendum for Discharge Summary. History/Risk Factors: DM, CKD, HTN Clinical Indicators: Weakness, BELLA Lab: Potassium 08/08 3.8, 08/09 3.7, 08/10 3.8 Based on the clinical evidence and your professional judgment, do you feel hypokalemia is a valid diagnosis? Yes, hypokalemia present/active during this admission as evidence by (additional clinical support): No, hypokalemia was ruled out Other (please specify diagnosis) Unable to determine i am not sure about your queri what your mean , please refer to my note MTDD
== END 2019-08-10 18:36 | disposition home health service (06) | DRG 948 ==
LOC: 5NMEDONC 17:06 → 4SSUR 08-10 16:32
PROVIDERS: ADMIT Internal Medicine; ATTEND Internal Medicine
DX: R74.0 Nonspecific elevation of levels of transaminase and lactic acid dehydrogenase [LDH] (principal); N17.9 Acute kidney failure, unspecified; I08.2 Rheumatic disorders of both aortic and tricuspid valves; D63.1 Anemia in chronic kidney disease; E11.22 Type 2 diabetes mellitus with diabetic chronic kidney disease; E88.81 Metabolic syndrome and other insulin resistance; E11.65 Type 2 diabetes mellitus with hyperglycemia; E87.6 Hypokalemia; E83.42 Hypomagnesemia; R53.1 Weakness; E78.5 Hyperlipidemia, unspecified; M19.90 Unspecified osteoarthritis, unspecified site; R32 Unspecified urinary incontinence; G47.33 Obstructive sleep apnea (adult) (pediatric); K80.20 Calculus of gallbladder without cholecystitis without obstruction; R74.8 Abnormal levels of other serum enzymes; I10 Essential (primary) hypertension; E66.9 Obesity, unspecified; D50.9 Iron deficiency anemia, unspecified; N18.2 Chronic kidney disease, stage 2 (mild); Z68.39 Body mass index [BMI] 39.0-39.9, adult; Z79.899 Other long term (current) drug therapy; Z79.890 Hormone replacement therapy; Z79.82 Long term (current) use of aspirin; Z79.4 Long term (current) use of insulin; Z79.1 Long term (current) use of non-steroidal anti-inflammatories (NSAID); Z90.710 Acquired absence of both cervix and uterus; Z91.81 History of falling; Z87.891 Personal history of nicotine dependence; Z96.651 Presence of right artificial knee joint; Z98.42 Cataract extraction status, left eye; Z98.41 Cataract extraction status, right eye
CPT/HCPCS: 74183; 80048; 80053; 80074; 80076; 81001; 82103; 82105; 82390; 82607; 82728; 82747; 83036; 83516; 83540; 83550; 83735; 85025; 86038; 86376; 86645; 86665; 86694; 93306

== ENCOUNTER 2019-08-23 | Day surgery (SDC) | payer MEDICARE | END 2019-08-23 15:00 | disposition home or self-care (01) | DX: K75.81 Nonalcoholic steatohepatitis (NASH) (principal) | CPT/HCPCS: 85049; 85610; 47000; 77012; J1170; 88307; 88313 ==

== ENCOUNTER 2019-09-29 20:35 | Emergency (ER) | payer MEDICARE ==
--- NOTE | 2019-09-29 21:33 | ED ---
Fall HPI - General Source: patient, EMS Mode of arrival: EMS <Tonya Jewell - Last Filed: 09/29/19 23:28> <Blanca Roman - Last Filed: 10/01/19 23:43> - General Chief Complaint: Fall Stated Complaint: Fall Time Seen by Provider: 09/29/19 20:42 - History of Present Illness Initial Comments: 73-year-old female patient presents to the emergency department today for evaluation of severe right leg pain. Patient states that she was walking when her leg gave out. States that she had immediate onset of pain in a band around the lower thigh just above the knee. States this occurred about three hours ago. Patient denies any previous injury to this leg. Does have history of right total knee with Dr. Alexandra. Patient states with the injury she did also started having some shortness of breath. Not sure if his from the pain. Denies chest pain, cough, congestion, fever, states she has been chilled. Denies numbness or tingling to the leg or foot. She denies hitting her head or losing consciousness with the fall. Denies any neck or back pain. Patient denies any recent rash, abdominal pain, nausea, vomiting, diarrhea, constipation, dizziness, weakness, hematuria, dysuria, urinary urgency, urinary frequency, headache, visual changes, or any other complaints. (Tonya Jewell) - Related Data Home Medications Medication Instructions Recorded Confirmed Lansoprazole [Prevacid] 30 mg PO DAILY 03/06/14 09/29/19 Tolterodine Tartrate [Detrol LA] 4 mg PO DAILY 03/06/14 09/29/19 Citalopram Hydrobromide [CeleXA] 40 mg PO DAILY 07/28/19 09/29/19 Levothyroxine Sodium [Synthroid] 50 mcg PO DAILY 07/28/19 09/29/19 Insulin NPH Hum/Reg Insulin Hm 50 unit SQ DAILY 09/29/19 09/29/19 [humuLIN 70/30 Kwikpen] Previous Rx's Medication Instructions Recorded Aspirin 81 mg PO DAILY #0 08/10/19 Allergies Allergy/AdvReac Type Severity Reaction Status Date / Time No Known Allergies Allergy Verified 09/29/19 21:57 Review of Systems ROS Other: All systems not noted in ROS Statement are negative. <Tonya Jewell - Last Filed: 09/29/19 23:28> ROS Other: All systems not noted in ROS Statement are negative. <Blanca Roman Selvin - Last Filed: 10/01/19 23:43> ROS Statement: Those systems with pertinent positive or pertinent negative responses have been documented in the HPI. Past Medical History Past Medical History: Diabetes Mellitus, Hyperlipidemia, Hypertension, Osteoarthritis (OA), Sleep Apnea/CPAP/BIPAP History of Any Multi-Drug Resistant Organisms: None Reported Past Surgical History: Hysterectomy, Orthopedic Surgery Additional Past Surgical History / Comment(s): bilateral cataract, total right knee Past Psychological History: Depression Smoking Status: Former smoker Past Alcohol Use History: None Reported Past Drug Use History: None Reported - Past Family History Mother Family Medical History: No Reported History <Tonya Jewell - Last Filed: 09/29/19 23:28> General Exam Limitations: no limitations General appearance: alert, in no apparent distress, other (This is a well- developed, well-nourished elderly female patient in no acute distress. Vital signs upon presentation are temperature 97.6F, pulse 94, respirations 20, blood pressure 121/76, pulse ox 99% on room air.) Eye exam: Present: normal appearance, PERRL, EOMI. Absent: scleral icterus, conjunctival injection, periorbital swelling ENT exam: Present: normal exam, normal oropharynx, mucous membranes moist Neck exam: Present: normal inspection, full ROM, other (Nontender, no step-off, no deformity to firm midline palpation of the posterior cervical spine. Full range of motion without pain or limitation.). Absent: tenderness, meningismus, lymphadenopathy Respiratory exam: Present: normal lung sounds bilaterally. Absent: respiratory distress, wheezes, rales, rhonchi, stridor Cardiovascular Exam: Present: regular rate, normal rhythm, normal heart sounds. Absent: systolic murmur, diastolic murmur, rubs, gallop, clicks GI/Abdominal exam: Present: soft, normal bowel sounds. Absent: distended, tenderness, guarding, rebound, rigid Extremities exam: Present: full ROM, tenderness (Tenderness over the right distal thigh), normal capillary refill, other (There is soft tissue swelling there appears to be shortening of the right leg. Skin to the leg is pink, warm, dry. Cap refills less than 3 seconds. Pedal and posttibial pulses 2+ and equal bilaterally.). Absent: normal inspection, pedal edema, joint swelling, calf tenderness Back exam: Present: normal inspection, other (Nontender, no step-off, no deformity to firm midline palpation of the thoracic and lumbar vertebrae. Full range of motion without pain or limitation.). Absent: vertebral tenderness Neurological exam: Present: alert, oriented X3, CN II-XII intact Psychiatric exam: Present: normal affect, normal mood Skin exam: Present: warm, dry, intact, normal color. Absent: rash <Tonya Jewell - Last Filed: 09/29/19 23:28> Course Vital Signs 09/29/19 09/29/19 09/29/19 20:38 22:01 22:40 Temperature 97.6 F 97.3 F L Pulse Rate 94 92 Respiratory 20 19 Rate Blood Pressure 121/76 93/63 103/68 O2 Sat by Pulse 99 95 Oximetry 09/29/19 09/29/19 09/29/19 22:44 22:45 22:57 Temperature Pulse Rate 87 Respiratory 18 Rate Blood Pressure 103/68 76/52 76/59 O2 Sat by Pulse 95 Oximetry 09/29/19 09/29/19 09/29/19 22:58 23:00 23:30 Temperature 97.1 F L Pulse Rate 92 Respiratory 19 Rate Blood Pressure 89/56 86/56 92/55 O2 Sat by Pulse 95 Oximetry Medical Decision Making - Lab Data Result diagrams: 09/29/19 21:20 09/29/19 21:20 - EKG Data -: EKG Interpreted by Ar - Radiology Data Radiology results: report reviewed, image reviewed <Tonya Jewell - Last Filed: 09/29/19 23:28> - Lab Data Result diagrams: 09/29/19 21:20 09/29/19 21:20 <Blanca Roman - Last Filed: 10/01/19 23:43> - Medical Decision Making 73-year-old female patient presents to the emergency department today for evaluation of severe right leg pain. Physical examination did reveal soft tissue swelling to the distal thigh above the right knee. Neurovascular status is intact. Patient was also hypoxic and short of breath upon arrival. Labs reviewed and did reveal elevated troponin at 0.484. X-rays of the right femur were obtained and did show a supracondylar distal comminuted femur fracture with displacement up to 3.5 cm. Computed tomography scan of the chest was obtained and showed evidence for large pulmonary emboli bilaterally with evidence of right heart strain. She has no histor of pulmonary embolism. Does admit to decreased physical mobility. I spoke to Charlie Gonzales at orthopedics who recommends transfer for this fracture. My attending Dr. Roman spoke to the vascular surgeon Dr. Wasserman milk condenser to discuss the pulmonary emboli he will follow the case at [facility]. We will start high dose heparin. She will be transferred to [facility] emergency department, Dr. Josue is accepting. (Tonya Jewell) I was available for consultation in the emergency department. The history and physical exam were done by the midlevel provider. I was consulted for this patients care. I reviewed the case with the midlevel provider and based on their presentation of the patient, I agree with the assessment, medical decision making and plan of care as documented. Blood pressure, heart rate and oxygen remained stable prior to discharge and therefore TPA was not administered. Patients acute femur fracture is a relative contraindication for this type of treatment and I do feel the patient would best benefit from catheter directed therapy. Chart was dictated using [employer] dictation software. Attempts were made to correct any dictation errors however some typographical errors may persist. Patient was seen during a national state of emergency due to the Covid-19 pandemic. (Blanca Roman) - Lab Data Lab Results 09/29/19 09/29/19 09/29/19 Range/Units 21:20 21:20 21:20 WBC 13.2 H (3.8-10.6) k/uL RBC 4.20 (3.80-5.40) m/uL Hgb 13.4 (11.4-16.0) gm/dL Hct 40.8 (34.0-46.0) % MCV 97.0 (80.0-100.0) fL MCH 32.0 (25.0-35.0) pg MCHC 33.0 (31.0-37.0) g/dL RDW 12.5 (11.5-15.5) % Plt Count 231 (150-450) k/uL Neutrophils % 83 % Lymphocytes % 10 % Monocytes % 5 % Eosinophils % 1 % Basophils % 0 % Neutrophils # 11.0 H (1.3-7.7) k/uL Lymphocytes # 1.3 (1.0-4.8) k/uL Monocytes # 0.6 (0-1.0) k/uL Eosinophils # 0.1 (0-0.7) k/uL Basophils # 0.1 (0-0.2) k/uL PT 11.2 (9.0-12.0) sec INR 1.1 (<1.2) APTT 23.9 (22.0-30.0) sec Sodium 134 L (137-145) mmol/L Potassium 4.9 (3.5-5.1) mmol/L Chloride 99 (98-107) mmol/L Carbon Dioxide 24 (22-30) mmol/L Anion Gap 11 mmol/L BUN 29 H (7-17) mg/dL Creatinine 1.00 (0.52-1.04) mg/dL Est GFR (CKD-EPI)AfAm 65 (>60 ml/min/1.73 sqM) Est GFR (CKD-EPI)NonAf 56 (>60 ml/min/1.73 sqM) Glucose 218 H (74-99) mg/dL Plasma Lactic Acid Bentley (0.7-2.0) mmol/L Calcium 9.0 (8.4-10.2) mg/dL Total Bilirubin 1.0 (0.2-1.3) mg/dL AST 37 H (14-36) U/L ALT 19 (4-34) U/L Alkaline Phosphatase 99 (38-126) U/L Creatine Kinase (30-135) U/L Troponin I (0.000-0.034) ng/mL Total Protein 6.8 (6.3-8.2) g/dL Albumin 3.5 (3.5-5.0) g/dL Blood Type Blood Type Confirm Blood Type Recheck Bld Type Recheck Status Antibody Screen Spec Expiration Date 09/29/19 09/29/19 09/29/19 Range/Units 21:20 21:20 21:28 WBC (3.8-10.6) k/uL RBC (3.80-5.40) m/uL Hgb (11.4-16.0) gm/dL Hct (34.0-46.0) % MCV (80.0-100.0) fL MCH (25.0-35.0) pg MCHC (31.0-37.0) g/dL RDW (11.5-15.5) % Plt Count (150-450) k/uL Neutrophils % % Lymphocytes % % Monocytes % % Eosinophils % % Basophils % % Neutrophils # (1.3-7.7) k/uL Lymphocytes # (1.0-4.8) k/uL Monocytes # (0-1.0) k/uL Eosinophils # (0-0.7) k/uL Basophils # (0-0.2) k/uL PT (9.0-12.0) sec INR (<1.2) APTT (22.0-30.0) sec Sodium (137-145) mmol/L Potassium (3.5-5.1) mmol/L Chloride (98-107) mmol/L Carbon Dioxide (22-30) mmol/L Anion Gap mmol/L BUN (7-17) mg/dL Creatinine (0.52-1.04) mg/dL Est GFR (CKD-EPI)AfAm (>60 ml/min/1.73 sqM) Est GFR (CKD-EPI)NonAf (>60 ml/min/1.73 sqM) Glucose (74-99) mg/dL Plasma Lactic Acid Bentley (0.7-2.0) mmol/L Calcium (8.4-10.2) mg/dL Total Bilirubin (0.2-1.3) mg/dL AST (14-36) U/L ALT (4-34) U/L Alkaline Phosphatase (38-126) U/L Creatine Kinase 111 (30-135) U/L Troponin I 0.484 H* (0.000-0.034) ng/mL Total Protein (6.3-8.2) g/dL Albumin (3.5-5.0) g/dL Blood Type Blood Type Confirm A Positive Blood Type Recheck Bld Type Recheck Status Antibody Screen Spec Expiration Date 09/29/19 09/29/19 Range/Units 21:43 22:14 WBC (3.8-10.6) k/uL RBC (3.80-5.40) m/uL Hgb (11.4-16.0) gm/dL Hct (34.0-46.0) % MCV (80.0-100.0) fL MCH (25.0-35.0) pg MCHC (31.0-37.0) g/dL RDW (11.5-15.5) % Plt Count (150-450) k/uL Neutrophils % % Lymphocytes % % Monocytes % % Eosinophils % % Basophils % % Neutrophils # (1.3-7.7) k/uL Lymphocytes # (1.0-4.8) k/uL Monocytes # (0-1.0) k/uL Eosinophils # (0-0.7) k/uL Basophils # (0-0.2) k/uL PT (9.0-12.0) sec INR (<1.2) APTT (22.0-30.0) sec Sodium (137-145) mmol/L Potassium (3.5-5.1) mmol/L Chloride (98-107) mmol/L Carbon Dioxide (22-30) mmol/L Anion Gap mmol/L BUN (7-17) mg/dL Creatinine (0.52-1.04) mg/dL Est GFR (CKD-EPI)AfAm (>60 ml/min/1.73 sqM) Est GFR (CKD-EPI)NonAf (>60 ml/min/1.73 sqM) Glucose (74-99) mg/dL Plasma Lactic Acid Bentley 1.8 (0.7-2.0) mmol/L Calcium (8.4-10.2) mg/dL Total Bilirubin (0.2-1.3) mg/dL AST (14-36) U/L ALT (4-34) U/L Alkaline Phosphatase (38-126) U/L Creatine Kinase (30-135) U/L Troponin I (0.000-0.034) ng/mL Total Protein (6.3-8.2) g/dL Albumin (3.5-5.0) g/dL Blood Type A Positive Blood Type Confirm Blood Type Recheck A Pos Bld Type Recheck Status CABO Indicated Antibody Screen NEGATIVE Spec Expiration Date 10/02/2019 - 6083 - EKG Data EKG Comments: EKG obtained at 2042 shows normal sinus rhythm with a sinus arrhythmia. There is right bundle branch block. Ventricular rate of 91, PA interval 184, QRS duration 108, QT 380, QTc 467. (Bannancy,Tonya M) - Radiology Data 4 views of the right femur obtained. Report was reviewed in its entirety. Impression by Dr. Burk shows comminuted fracture of the supracondylar distal femur with displaced up to 3.5 cm One view x-ray of the chest is obtained. Report was reviewed in its entirety. Impression by Dr. Burk shows no active cardiopulmonary disease CT chest angiography for pulmonary embolism was obtained. Report was reviewed in its entirety. Impression by Dr. Burk shows large bilateral pulmonary emboli. Cardiomegaly with right large right ventricle suggestive of right heart strain. Right pleural effusion and right basilar pulmonary infiltrate. (Tonya Jewell) Critical Care Time Critical Care Time: Yes <Blanca Roman - Last Filed: 10/01/19 23:43> Critical Care Time: 35 minutes for initiation of high dose heparin treatment and consultation with orthopedics, vascular (PERT team) and accepting facility. (Blanca Roman) Disposition - Out of Hospital Transfer - Req. Specs Out of Hospital Transfer - Requested Specifics: Other Emergency Center ([facility]) <Tonya Jewell - Last Filed: 09/29/19 23:28> <Blanca Roman - Last Filed: 10/01/19 23:43> Clinical Impression: Closed comminuted supracondylar fracture of right femur, Bilateral pulmonary embolism Disposition: OTHER INSTITUTION NOT DEFINED Condition: Serious Referrals: Jordon Pichardo MD [Primary Care Provider] - 1-2 days
[2019-09-29 21:40] LABS: Basophils # (A) 0.1 k/uL (0-0.2); Basophils % (A) 0 %; Eosinophils # (A) 0.1 k/uL (0-0.7); Eosinophils % (A) 1 %; HCT 40.8 % (34.0-46.0); HGB 13.4 gm/dL (11.4-16.0); Lymphocytes # (A) 1.3 k/uL (1.0-4.8); Lymphocytes % (A) 10 %; Mean Platelet Volume 9.9; Monocytes # (A) 0.6 k/uL (0-1.0); Monocytes % (A) 5 %; Neutrophils % (A) 83 %; Platelet Count 231 k/uL (150-450); RDW 12.5 % (11.5-15.5); WBC 13.2 k/uL (3.8-10.6)
--- NOTE | 2019-09-29 21:51 | XR ---
EXAMINATION TYPE: XR femur RT DATE OF EXAM: 09/29/2019 COMPARISON: None HISTORY: Pain after falling TECHNIQUE: 4 views FINDINGS: Hip joint is intact. There is acetabular spurring. There is comminuted supracondylar fractu re of the distal right femur. There is right knee prosthesis. Fracture line extends to the prosthesis . IMPRESSION: Comminuted fracture of the supracondylar distal femur with displacement up to 3.5 cm.
--- NOTE | 2019-09-29 21:52 | XR ---
EXAMINATION TYPE: XR chest 1V DATE OF EXAM: 09/29/2019 COMPARISON: NONE HISTORY: Pain TECHNIQUE: Single view FINDINGS: IMPRESSION: There is no heart failure nor confluent pneumonic infiltrate. Costophrenic angles are lorenzo ar. There are no hilar masses. Bony thorax is intact. IMPRESSION: No active cardiopulmonary disease.
[2019-09-29 22:01] LABS: Albumin 3.5 g/dL (3.5-5.0); INR 1.1 (<1.2); Partial Thromboplastin Time 23.9 sec (22.0-30.0); Potassium 4.9 mmol/L (3.5-5.1); Prothrombin Time 11.2 sec (9.0-12.0); Total Protein 6.8 g/dL (6.3-8.2)
[2019-09-29] MEDS ORDERED: HYDROmorphone 1 MG/ML 1 ML SYRINGE IVP STA (22:04)
[2019-09-29] MEDS ORDERED: ONDANSETRON 4 MG/2 ML VIAL IVP STA (22:04)
[2019-09-29] MEDS ORDERED: SODIUM CHLORIDE 0.9% 1,000 ML IV ONE (22:08)
--- NOTE | 2019-09-29 22:49 | CT ---
EXAMINATION TYPE: CT chest angio for PE DATE OF EXAM: 09/29/2019 COMPARISON: None HISTORY: hypoxia CT DLP: 1022.6 mGycm Automated exposure control for dose reduction was used. CONTRAST: Performed with IV Contrast, patient injected with 80cc mL of Isovue 370. there are 3-D post processed images. There is right pleural effusion. There is some infiltrate and atelectasis at the right lung base. The re is slight elevated right diaphragm. Heart is borderline enlarged. There is no mediastinal adenopat hy. Thoracic aorta is intact. There is no aneurysm or dissection. There are multiple large filling defects in the proximal pulmonary arteries bilaterally. Pulmonary em boli extend up to the main pulmonary artery. Right ventricle is large. There is spurring in the thora cic spine. IMPRESSION: Large bilateral pulmonary emboli. Cardiomegaly with large right ventricle suggestive of right heart s train. Right pleural effusion and right basilar pulmonary infiltrate. This exam was discussed with the ER physician at 1245am
[2019-09-29] MEDS ORDERED: HEPARIN SODIUM,PORCINE 5,000 UNIT/ML 1 ML VIAL IV PRN (22:57)
[2019-09-29] MEDS ORDERED: HEPARIN SODIUM,PORCINE 10,000 UNIT/ML 1 ML VIAL IV ONE (22:57)
[2019-09-29] MEDS ORDERED: HEPARIN SOD,PORK IN 0.45% NACL 25,000 UNIT in 0.45% NACL 1 250ML.BAG IV SCH (23:00)
[2019-09-29] MEDS ORDERED: SODIUM CHLORIDE 0.9% 500 ML 500 ML IV ONE (23:11)
[2019-09-29 23:45] VITALS: BP 92/55; PULSE 92; RESP 19; TEMP 97.1
== END 2019-09-29 23:56 | disposition other institution (70) ==
LOC: EC 20:35
DX: S72.451A Displaced supracondylar fracture without intracondylar extension of lower end of right femur, initial encounter for closed fracture (principal); I26.99 Other pulmonary embolism without acute cor pulmonale; I11.9 Hypertensive heart disease without heart failure; E11.9 Type 2 diabetes mellitus without complications; F32.9 Major depressive disorder, single episode, unspecified; G47.30 Sleep apnea, unspecified; Z99.89 Dependence on other enabling machines and devices; Z87.891 Personal history of nicotine dependence; Z79.890 Hormone replacement therapy; Z79.4 Long term (current) use of insulin; Z79.899 Other long term (current) drug therapy; W19.XXXA Unspecified fall, initial encounter; Y93.01 Activity, walking, marching and hiking; Y92.009 Unspecified place in unspecified non-institutional (private) residence as the place of occurrence of the external cause
CPT/HCPCS: 99291 ×2; 96365 ×2; 96375 ×3; 96376 ×2; 96361 ×2; 36415; 93005; 86900; 86901; 80053; 82550; 83605; 84484; 85025; 85610; 85730; 86850; 73552; 71045; 71275; J1644 ×2; J2405; J1170; Q9967